=== PATIENT | male | born 1965 | race African-American/Black ===

== ENCOUNTER 2018-01-29 20:07 | Inpatient (IN) | payer MEDICARE ==
[~2018-01-29] VITALS: Ht 182.9 cm; Wt 82.9 kg
--- NOTE | ~2018-01-29 | EC ---
PATIENT:VALENTE HUFF DATE OF SERVICE: 01/29/18 SEX: M MEDICAL RECORD: [id number] DATE OF : [birth year] LOCATION:D.M2 D.210 AGE OF PATIENT: 52 ADMISSION DATE: 01/29/18 REFERRING PHYSICIAN: INTERPRETING PHYSICIAN: MOISES STEVENS MD ECHOCARDIOGRAM REPORT ECHO CHARGES 4 ECHO COMPLETE Date: 01/30 CLINICAL DIAGNOSIS: SEPSIS/ASSESS FOR VEG/ PT HAS DIALYSIS CATHTER ECHOCARDIOGRAPHIC MEASUREMENTS (adult normal given) AC root (d.<3.7cm) 3.5 cm LV Septum d (<1.2 cm> 1.5 cm Valve Excursion 2.5 cm LV Septum (systole) 1.6 cm Left Atria (s.<4.0cm> 3.5 cm LVPW d(<1.2cm) 1.7 cm RV (d.<2.3cm) 4.0 cm LVPW (sytole) 2.0 cm LV diastole(<5.6CM) 5.2 cm MV E-F(>70mm/sec) cm LV systole 3.1 cm LVOT Diameter 2.2 cm MV exc.(>10mm) 2.8 cm Est.ejection fraction (50-75%) % DOPPLER: LVIT cm/sec A 86.0 cm/sec E 101 cm/sec LA cm/sec RVSP 18 mmHg LVOT 118 cm/sec AOP1/2T m/s Asc. Ao 136 cm/sec RVOT 89 cm/sec RA cm/sec PA 109 cm/sec AV Gradient Peak mmHg AV Mean 7.42 mmHg AV Area 3.89 cm MV Gradient Peak 3.3 mmHg MV Mean 5.69 mmHg MV Area 2.69 cm COMMENTS: Surgery Teacher: Jacek VALENZUELA Sewage Plant Attendant: 1 Dr. Stevens TAPE# PACS Pericardial Effusion N DATE OF SERVICE: 01/30/2018 PROCEDURE: Echocardiogram. FINDINGS: 1. Left ventricular chamber size is within normal limits. Left ventricular systolic function is normal. Overall ejection fraction estimated at 60%. 2. Left atrium is within normal limits at 3.5 cm. Right atrium and right ventricular sizes are mildly dilated. 3. Valvular structures have normal structure and motion. ECHOCARDIOGRAM REPORT [id number] VALENTE HUFF 4. Doppler interrogation reveals mild mitral regurgitation, mild tricuspid regurgitation, no other valvular insufficiency or stenosis. 5. No evidence of pericardial effusion or left ventricular thrombus. 6. No evidence of vegetative endocarditis. TRANSINT:[id number] Voice Confirmation ID: [id number] DOCUMENT ID: [id number] MOISES STEVENS MD at 1403 CC: [id number] DICTATION DATE: 01/31/18 1214 CCNA: 01/31/18 1232 DIS IN 02/05/18 [place] [id number] [place] [id number]
--- NOTE | ~2018-01-29 | OP ---
PATIENT NAME: VALENTE HUFF MEDICAL RECORD: [id number] :69 LOCATION:D.M2 D.2104 ADMISSION DATE:01/29/18 SURGEON: MORRO TOWNSEND MD DATE OF OPERATION: 02/03/2018 PREOPERATIVE DIAGNOSES: 1. Osteomyelitis of the right great toe. 2. End-stage renal disease. 3. Peripheral artery disease. POSTOPERATIVE DIAGNOSES: 1. Osteomyelitis of the right great toe. 2. End-stage renal disease. 3. Peripheral artery disease. PROCEDURE: Excisional sharp debridement of the right great toe. SURGEON: Morro Townsend MD REPORT OF OPERATION: The patient's right great toe tip had a large amount of necrotic tissue present. Using sharp dissection, I was able to dissect through the tip of this tissue, which was necrotic. As I continued down, I encountered the tip of the patient's bone which had some osteomyelitis-type changes. The surrounding area had minimal amount of purulence. A sharp dissection was continued until we encountered what appeared to be bleeding tissue. The patient did not require anesthesia for this procedure. Eventually, we took off a section of tissue that was about 2 cm in greatest diameter and extended down through the subcutaneous tissues to the bone. The wound was then irrigated out with peroxide and covered with gauze. COMPLICATIONS: None. CONDITION: Stable. ANESTHESIA: None. BLOOD LOSS: Minimal. Procedure done at the bedside. TRANSINT:[id number] Voice Confirmation ID: [id number] DOCUMENT ID: [id number] MORRO TOWNSEND MD at 1228 CC: [id number] DICTATION DATE: 02/13/18 1322 SECURED ENTRANCE MONITOR: 02/13/18 1348 DIS IN 02/05/18 [facility] [address] [place] [address]
[2018-01-30 01:31] VITALS: BP 122/61
[2018-01-30] MEDS ORDERED: ULTRAM50 MG PO (03:07)
[2018-01-30] MEDS ORDERED: PHOSLO667 MG PO (03:07)
[2018-01-30] MEDS ORDERED: XALATAN 0.0052.5 ML EACH EYE (03:08)
[2018-01-30] MEDS ORDERED: NORCO 7.5/325 T1 TA1 PO (03:08)
[2018-01-30] MEDS ORDERED: NEXIUM40 MG PO (03:09)
[2018-01-30] MEDS ORDERED: GABAPENTIN100 MG PO (03:09)
[2018-01-30] MEDS ORDERED: VELTASSA8.4 GM PO (03:10)
[2018-01-30] MEDS ORDERED: HUMULIN N100 U/ML SC (03:10)
[2018-01-30] MEDS ORDERED: CLEOCIN HCL150 MG PO (03:11)
[2018-01-30] MEDS ORDERED: CYCLOBENZAPRINE10 MG PO (03:12)
[2018-01-30 05:35] LABS: BASOPHILS 0.2 % (0-2); HEMATOCRIT 35.2 % (42.0-54.0); HEMOGLOBIN 11.2 g/dL (13.5-17.5); IMMATURE GRANULOCYTES 0.4 % (0-5); LYMPHOCYTES 10.8 % (15-50); MCH 30.8 pg (26.0-34.0); MCHC 31.8 g/dL (31.0-37.0); MCV 96.7 fL (80.0-100.0); MEAN PLATELET VOLUME 8.8 fL (7.4-10.4); MONOCYTES 7.7 % (2-11); NEUTROPHILS 76.9 % (40-80); PLATELET COUNT 196 10x3/uL (130-400); RBC 3.64 10x6/uL (4.20-6.10); RDW 17.9 % (11.5-14.5); WBC 16.7 10x3/uL (4.8-10.8)
[2018-01-30 05:52] LABS: ALBUMIN 2.5 g/dL (3.4-5.0); ANION GAP 17.2 mmol/L (8-16); BILIRUBIN - TOTAL 0.3 mg/dL (0.2-1.3); CALCIUM 8.9 mg/dL (8.5-10.1); CREATININE - SERUM 11.6 mg/dL (0.6-1.3); POTASSIUM - SERUM 4.2 mmol/L (3.5-5.1)
[2018-01-30 06:21] VITALS: BP 99/45
[2018-01-30 07:33] LABS: GENTAMICIN - RANDOM 1.4 ug/mL (0.5-2.0); VANCOMYCIN - RANDOM 8.1 ug/mL (10.0-20.0)
[2018-01-30 08:50] VITALS: BP 106/49
[2018-01-30 10:41] VITALS: BMI 25.6
[2018-01-30 12:03] VITALS: BP 130/74
[2018-01-30 15:28] VITALS: BP 149/80
[2018-01-30 20:38] VITALS: BP 125/68
[2018-01-31 00:05] VITALS: BP 120/60
[2018-01-31 04:39] VITALS: BP 123/63
[2018-01-31 05:25] LABS: ANION GAP 22.6 mmol/L (8-16); CALCIUM 8.8 mg/dL (8.5-10.1); CARBON DIOXIDE 21.2 mmol/L (21.0-32.0); CREATININE - SERUM 14.1 mg/dL (0.6-1.3); GENTAMICIN - RANDOM 1.3 ug/mL (0.5-2.0); PHOSPHOROUS 5.8 mg/dL (2.5-4.9); POTASSIUM - SERUM 3.8 mmol/L (3.5-5.1); VANCOMYCIN - RANDOM 7.9 ug/mL (10.0-20.0)
[2018-01-31 05:36] LABS: BASOPHILS 0.1 % (0-2); EOSINOPHILS 10.6 % (0-7); HEMATOCRIT 35.4 % (42.0-54.0); HEMOGLOBIN 11.3 g/dL (13.5-17.5); IMMATURE GRANULOCYTES 0.2 % (0-5); LYMPHOCYTES 9.4 % (15-50); MCH 30.5 pg (26.0-34.0); MCHC 31.9 g/dL (31.0-37.0); MCV 95.7 fL (80.0-100.0); MEAN PLATELET VOLUME 9.1 fL (7.4-10.4); MONOCYTES 9.9 % (2-11); NEUTROPHILS 69.8 % (40-80); RDW 17.4 % (11.5-14.5); WBC 15.3 10x3/uL (4.8-10.8)
[2018-01-31 05:47] LABS: PLATELET COUNT 241 10x3/uL (130-400)
[2018-01-31 08:02] VITALS: BP 108/61
[2018-01-31 15:19] VITALS: BP 109/74
[2018-01-31 20:33] VITALS: BP 112/62
[2018-02-01 01:35] VITALS: BP 86/64
[2018-02-01 04:59] LABS: BASOPHILS 0.2 % (0-2); EOSINOPHILS 12.5 % (0-7); HEMATOCRIT 35.1 % (42.0-54.0); HEMOGLOBIN 11.3 g/dL (13.5-17.5); IMMATURE GRANULOCYTES 0.7 % (0-5); LYMPHOCYTES 9.4 % (15-50); MCH 30.5 pg (26.0-34.0); MCHC 32.2 g/dL (31.0-37.0); MCV 94.9 fL (80.0-100.0); MEAN PLATELET VOLUME 8.8 fL (7.4-10.4); MONOCYTES 12.3 % (2-11); NEUTROPHILS 64.9 % (40-80); PLATELET COUNT 214 10x3/uL (130-400); RDW 17.3 % (11.5-14.5)
[2018-02-01 05:02] LABS: WBC 11.2 10x3/uL (4.8-10.8)
[2018-02-01 05:38] LABS: ANION GAP 16.5 mmol/L (8-16); CARBON DIOXIDE 26.2 mmol/L (21.0-32.0); CREATININE - SERUM 11.9 mg/dL (0.6-1.3); PHOSPHOROUS 5.2 mg/dL (2.5-4.9); POTASSIUM - SERUM 3.7 mmol/L (3.5-5.1)
[2018-02-01 05:50] VITALS: BP 97/50
[2018-02-01 08:25] VITALS: BP 94/50
[2018-02-01 10:28] VITALS: Ht 182.9 cm; Wt 82.9 kg
[2018-02-01 15:53] VITALS: BP 113/67
[2018-02-01 20:34] VITALS: BP 142/85
[2018-02-02 01:31] VITALS: BP 117/78
[2018-02-02 05:43] VITALS: BP 102/54
[2018-02-02 05:50] LABS: BASOPHILS 0.2 % (0-2); EOSINOPHILS 16.2 % (0-7); HEMATOCRIT 33.2 % (42.0-54.0); HEMOGLOBIN 10.7 g/dL (13.5-17.5); IMMATURE GRANULOCYTES 1.2 % (0-5); LYMPHOCYTES 14.1 % (15-50); MCH 30.4 pg (26.0-34.0); MCHC 32.2 g/dL (31.0-37.0); MCV 94.3 fL (80.0-100.0); MEAN PLATELET VOLUME 9.1 fL (7.4-10.4); MONOCYTES 12.6 % (2-11); NEUTROPHILS 55.7 % (40-80); PLATELET COUNT 217 10x3/uL (130-400); RBC 3.52 10x6/uL (4.20-6.10)
[2018-02-02 05:53] LABS: WBC 8.2 10x3/uL (4.8-10.8)
[2018-02-02 06:03] LABS: ANION GAP 18.9 mmol/L (8-16); CALCIUM 8.9 mg/dL (8.5-10.1); CARBON DIOXIDE 25.7 mmol/L (21.0-32.0); CREATININE - SERUM 13.4 mg/dL (0.6-1.3); PHOSPHOROUS 5.5 mg/dL (2.5-4.9); POTASSIUM - SERUM 3.6 mmol/L (3.5-5.1); VANCOMYCIN - RANDOM 16.4 ug/mL (10.0-20.0)
[2018-02-02 10:02] VITALS: BP 122/64
[2018-02-02 13:18] VITALS: BP 135/81
[2018-02-02 16:17] VITALS: BP 152/90
[2018-02-02 22:00] VITALS: BP 152/79
[2018-02-03 02:06] VITALS: BP 122/66
[2018-02-03 06:01] VITALS: BP 111/67
[2018-02-03 06:51] LABS: BASOPHILS 0.3 % (0-2); EOSINOPHILS 12.2 % (0-7); HEMATOCRIT 32.3 % (42.0-54.0); HEMOGLOBIN 10.4 g/dL (13.5-17.5); IMMATURE GRANULOCYTES 1.4 % (0-5); LYMPHOCYTES 12.6 % (15-50); MCH 30.2 pg (26.0-34.0); MCHC 32.2 g/dL (31.0-37.0); MCV 93.9 fL (80.0-100.0); MEAN PLATELET VOLUME 9.1 fL (7.4-10.4); MONOCYTES 11.9 % (2-11); NEUTROPHILS 61.6 % (40-80); PLATELET COUNT 239 10x3/uL (130-400); RBC 3.44 10x6/uL (4.20-6.10); RDW 16.9 % (11.5-14.5); WBC 9.4 10x3/uL (4.8-10.8)
[2018-02-03 07:14] LABS: ANION GAP 18.6 mmol/L (8-16); CALCIUM 9.2 mg/dL (8.5-10.1); CARBON DIOXIDE 24.1 mmol/L (21.0-32.0); CREATININE - SERUM 15.6 mg/dL (0.6-1.3); PHOSPHOROUS 5.3 mg/dL (2.5-4.9); POTASSIUM - SERUM 3.7 mmol/L (3.5-5.1); VANCOMYCIN - RANDOM 30.5 ug/mL (10.0-20.0)
[2018-02-03 08:53] VITALS: BP 109/53
[2018-02-03 20:00] VITALS: BP 141/85
[2018-02-04] VITALS: BP 150/79
[2018-02-04 04:00] VITALS: BP 142/70
[2018-02-04 05:26] LABS: BASOPHILS 0.3 % (0-2); EOSINOPHILS 9.6 % (0-7); HEMATOCRIT 34.7 % (42.0-54.0); HEMOGLOBIN 11.3 g/dL (13.5-17.5); IMMATURE GRANULOCYTES 1.5 % (0-5); LYMPHOCYTES 11.6 % (15-50); MCH 30.6 pg (26.0-34.0); MCHC 32.6 g/dL (31.0-37.0); MEAN PLATELET VOLUME 8.6 fL (7.4-10.4); MONOCYTES 9.6 % (2-11); NEUTROPHILS 67.4 % (40-80); PLATELET COUNT 229 10x3/uL (130-400); RBC 3.69 10x6/uL (4.20-6.10); RDW 16.8 % (11.5-14.5); WBC 9.9 10x3/uL (4.8-10.8)
[2018-02-04 05:57] LABS: ANION GAP 17.2 mmol/L (8-16); CALCIUM 9.1 mg/dL (8.5-10.1); CARBON DIOXIDE 24.3 mmol/L (21.0-32.0); PHOSPHOROUS 4.9 mg/dL (2.5-4.9); POTASSIUM - SERUM 3.5 mmol/L (3.5-5.1); VANCOMYCIN - RANDOM 24.6 ug/mL (10.0-20.0)
[2018-02-04 07:59] VITALS: BP 115/59
[2018-02-04 11:48] VITALS: BP 146/88
[2018-02-04 15:46] VITALS: BP 157/83
[2018-02-04 20:28] VITALS: BP 149/87
[2018-02-05 01:30] VITALS: BP 135/73
[2018-02-05 04:00] VITALS: BP 103/55
[2018-02-05 07:44] VITALS: BP 133/63
[2018-02-05] MEDS ORDERED: CYCLOBENZAPRINE10 MG PO (11:25)
[2018-02-05] MEDS ORDERED: ZOCOR40 MG PO (11:25)
[2018-02-05 11:43] VITALS: BP 142/75
[2018-02-05] MEDS ORDERED: LEVAQUIN500 MG PO (14:01)
[2018-02-05] MEDS ORDERED: FLAGYL500 MG PO (14:04)
[2018-02-06 10:21] LABS: HEPATITIS C ANTIBODY 0.2 (0.0-0.9)
== END 2018-02-05 18:18 | disposition home health service (06) | DRG 623 ==
LOC: D.M2 20:07
PROVIDERS: Internal Medicine Nephrology
PROC: 0JBQ0ZZ Excision of Right Foot Subcutaneous Tissue and Fascia, Open Approach (ICD-10-PCS; principal; 2018-02-03)
DX: E11.69 Type 2 diabetes mellitus with other specified complication (principal); M86.171 Other acute osteomyelitis, right ankle and foot; N18.6 End stage renal disease; E11.22 Type 2 diabetes mellitus with diabetic chronic kidney disease; Z99.2 Dependence on renal dialysis; F32.9 Major depressive disorder, single episode, unspecified; D63.1 Anemia in chronic kidney disease; S91.302A Unspecified open wound, left foot, initial encounter; S91.301A Unspecified open wound, right foot, initial encounter; X58.XXXA Exposure to other specified factors, initial encounter

== ENCOUNTER → 2018-04-08 12:49 | Outpatient (CLI) | payer MEDICARE ==
[2018-02-01 10:28] VITALS: BMI 25.6
[~2018-04-08 12:49] MED LIST: CLEOCIN HCL150 MG PO; CYCLOBENZAPRINE10 MG PO; FLAGYL500 MG PO; GABAPENTIN100 MG PO; HUMULIN N100 U/ML SC; LEVAQUIN500 MG PO; NEXIUM40 MG PO; NORCO 7.5/325 T1 TA1 PO; PHOSLO667 MG PO; ULTRAM50 MG PO; VELTASSA8.4 GM PO; XALATAN 0.0052.5 ML EACH EYE; ZOCOR40 MG PO
== END | disposition home or self-care (01) ==
LOC: D.CT 04-03 09:00
DX: N18.6 End stage renal disease (principal)

== ENCOUNTER 2018-07-08 08:00 | Outpatient (CLI) | payer MEDICARE ==
[2018-02-01 10:28] VITALS: BMI 25.6
== END 2018-07-08 08:01 | disposition home or self-care (01) ==
LOC: D.OPS 08:00 → EDSTATUS 11:00 → D.OPS 11:30
DX: N18.6 End stage renal disease (principal); Z99.2 Dependence on renal dialysis; Z01.812 Encounter for preprocedural laboratory examination; Z01.811 Encounter for preprocedural respiratory examination; Z01.810 Encounter for preprocedural cardiovascular examination

== ENCOUNTER 2018-07-22 07:07 | Inpatient (IN) | payer MEDICARE ==
[~2018-07-22] VITALS: Ht 175.3 cm; Wt 88.0 kg
--- NOTE | ~2018-07-22 | MORECARE ---
CASE MANAGEMENT DISCHARGE SUMMARY PATIENT: VALENTE HUFF UNIT: [id number] ADM DATE: 07/22/18 AGE: 52 : [birth year] SEX: M ROOM/BED: D.2106 AUTHOR: SANTOS,DOC PHYSICIAN: REFERRING PHYSICIAN: JOHANN RANGEL MD DATE OF SERVICE: 07/25/18 Discharge Plan Patient Name: VALENTE HUFF Facility: [facility]:[place] : 1965 Planned Disposition: Home with Home Health Anticipated Discharge Date: 07/23/18 Discharge Date: 07/23/2018 Expected LOS: 1 Initial Reviewer: [email or web address] Initial Review Date: 07/23/2018 Generated: 07/25/18 9:05 am Comments DCP- Discharge Planning Updated by [email or web address]: Edgardo Carr on 07/23/18 1:[address] Patient Name: VALENTE HUFF Admission Status: Elective Accout number: [id number] Admission Date: 07-22-2018 : 1965 Admission Diagnosis: Attending: JOHANN RANGEL Current LOS: 1 Anticipated DC Date: 07-24-2018 Planned Disposition: Home with Home Health Primary Insurance: [facility] MEDICARE SOLUTIONS PLANNED EXTERNAL PROVIDER: [facility] Discharge Planning Comments: CM RECEIVED [facility] ORDER, MET WITH PT IN ROOM TO DISCUSS DISCHARGE PLANNING AND NEEDS. PT REPORTS LIVING AT HOME INDEPENDENTLY WITH FAMILY. PT HAS [facility]ENTER WITH NO MEDICAL EQUIPMENT PROVIDER [facility]. PT HAS [facility] OUT OF [place] OFFICE THAT COME OUT AND HELP WITH WOUND CARE. PT GOES TO DIALYSIS AT [facility] IN [place], [facility], 1030AM, PT TAKES [employer] MEDICAID TRANSPORTATION. CM DISCUSSED AVAILABILITY OF HOME HEALTH, REHAB SERVICES AND MEDICAL EQUIPMENT. PT WOULD LIKE [employer] TO RESUME, CHOICE SIGNED. PT EPORTS HER HIS FRIEND, MARIETTA WILL PICK HIM UP FOR DISCHARGE HOME. CM CALLED [facility] IN [place], , SPOKE TO FUNMILAYO WHO INFORMED CM THAT THEY ALREADY SEE PT FOR WOUND CARE AND ARE FAMILIAR WITH THE WOUND AND ORDERS FOR CARE. PT ALSO GOES TO THE WOUND CARE CLINIC AND THEY ARE WORKING AROUND PT'S DIALYSIS SCHEDULE. CM FAXED REFERRAL TO [facility] AT [phone]. FOR DISCHARGE, NOTIFY [facility] AT [phone], FAX DISCHARGE INFORMATION TO [facility] AT [phone]. Shell Molder: Edgardo Carr DCPIA - Discharge Planning Initial Assessment Updated by [email or web address]: Edgardo Carr on 07/23/18 2:28 pm * Is the patient Alert and Oriented? Yes * How many steps to enter\exit or inside your home? * PCP DR. HERRERA BARAKAT IN [place] * Pharmacy [facility] IN [place] * Preadmission Environment Home with Family * ADLs Independent * Equipment Glucometer * Other Equipment NO MEDICAL EQUIPMENT PROVIDER PREFERENCE * List name and contact numbers for known caregivers / representatives who currently or will assist patient after discharge: MARIETTA PUGH, FRIEND, * Verbal permission to speak to the caregivers and representatives has been obtained from the patient. N/A * Community resources currently utilized Home Health Other * Please name any agencies selected above. [facility] [phone] OUTPATIENT DIALYSIS, [place], MWF, 1030AM, MEDICAID TRANSPORTATION * Additional services required to return to the preadmission environment? No * Can the patient safely return to the preadmission environment? Yes * Has this patient been hospitalized within the prior 30 days at any hospital? No Last DP export: 07/23/18 1:32 Patient Name: VALENTE HUFF Page [phone] at 0805 All edits/amendments must be made on the electronic document DICTATION DATE: 07/25/18 08 CREDIT CONTROL OFFICER: FRANNIE 07/25/18803 RPT#: [id number] DC DATE:07/23/18 STATUS: DIS IN [facility] [address] [place] [address] END OF REPORT
--- NOTE | ~2018-07-22 | MORECARE ---
CASE MANAGEMENT DISCHARGE SUMMARY PATIENT: VALENTE HUFF UNIT: [id number] ADM DATE: 07/22/18 AGE: 52 : 69 SEX: M ROOM/BED: D.2105 AUTHOR: LONI GRAHAM PHYSICIAN: REFERRING PHYSICIAN: JOHANN RANGEL MD DATE OF SERVICE: 07/23/18 Discharge Plan Patient Name: VALENTE HUFF Facility: [facility]:[place] : 1965 Planned Disposition: Home with Home Health Anticipated Discharge Date: 07/24/18 Discharge Date: Expected LOS: 2 Initial Reviewer: [email or web address] Initial Review Date: 07/23/2018 Generated: 07/23/18 3:23 pm DCPIA - Discharge Planning Initial Assessment Updated by [email or web address]: Edgardo Carr on 07/23/18 2:21 pm * Is the patient Alert and Oriented? Yes * How many steps to enter\exit or inside your home? * PCP DR. HERRERA BARAKAT IN [place] * Pharmacy [facility] IN [place] * Preadmission Environment Home with Family * ADLs Independent * Equipment Glucometer * Other Equipment NO MEDICAL EQUIPMENT PROVIDER PREFERENCE * List name and contact numbers for known caregivers / representatives who currently or will assist patient after discharge: MARIETTA PUGH, FRIEND, * Verbal permission to speak to the caregivers and representatives has been obtained from the patient. N/A * Community resources currently utilized Home Health * Please name any agencies selected above. [facility] OFFICE [phone] * Additional services required to return to the preadmission environment? No * Can the patient safely return to the preadmission environment? Yes * Has this patient been hospitalized within the prior 30 days at any hospital? No Patient Name: VALENTE HUFF Page [phone] at 1424 All edits/amendments must be made on the electronic document DICTATION DATE: 07/23/181422 TWILL CUTTER: FRANNIE 07/23/181422 RPT#: [id number] DC DATE: STATUS: ADM IN [facility] [address] [place] [address] END OF REPORT
--- NOTE | ~2018-07-22 | MORECARE ---
CASE MANAGEMENT DISCHARGE SUMMARY PATIENT: VALENTE HUFF UNIT: [id number] ADM DATE: 07/22/18 AGE: 52 : 69 SEX: M ROOM/BED: D.2107 AUTHOR: LONI GRAHAM PHYSICIAN: REFERRING PHYSICIAN: JOHANN RANGEL MD DATE OF SERVICE: 07/25/18 Discharge Plan Patient Name: VALENTE HUFF Facility: [facility]:[place] : 1965 Planned Disposition: Home with Home Health Anticipated Discharge Date: 07/23/18 Discharge Date: 07/23/2018 Expected LOS: 1 Initial Reviewer: [email or web address] Initial Review Date: 07/23/2018 Generated: 07/25/18 9:11 am Comments DCP- Discharge Planning Updated by [email or web address]: Edgardo Carr on 07/25/18 7:[address] Patient Name: VALENTE HUFF Encounter No: [id number] : 1965 Primary Insurance: [facility] MEDICARE SOLUTIONS Anticipated DC Date: 07-23-2018 Planned Disposition: Home with Home Health External Planned Provider: [facility] [place] [facility] DCP follow-up note: CM REVIEWED CHART, PT DISCHARGED HOME. CM CALLED [facility] [place] [facility] AT [phone], SPOKE TO SHEN WHO REPORTS THEY WILL SEE PT AND HAD TO DO AN ENTIRE NEW ADMIT DUE TO TIME FRAME THAT HOSPITAL ADMISSION FELL. CM FAXED DISCHARGE INFORMATION TO [employer] AT [phone]. Interventional Radiology Tech: Edgardo Carr DCP- Discharge Planning Updated by [email or web address]: Edgardo Carr on 07/23/18 1:[address] Patient Name: VALENTE HUFF Admission Status: Elective Accout number: [id number] Admission Date: 07-22-2018 : 1965 Admission Diagnosis: Attending: JOHANN RANGEL Current LOS: 1 Anticipated DC Date: 07-24-2018 Planned Disposition: Home with Home Health Primary Insurance: [employer] MEDICARE SOLUTIONS PLANNED EXTERNAL PROVIDER: [facility] [place] [facility] Discharge Planning Comments: CM RECEIVED [facility] ORDER, MET WITH PT IN ROOM TO DISCUSS DISCHARGE PLANNING AND NEEDS. PT REPORTS LIVING AT HOME INDEPENDENTLY WITH FAMILY. PT HAS GLUCOMENTER WITH NO MEDICAL EQUIPMENT PROVIDER PREFERNECE. PT HAS [facility] OUT OF [place] OFFICE THAT COME OUT AND HELP WITH WOUND CARE. PT GOES TO DIALYSIS AT [facility] IN [place], MWF, 1030AM, PT TAKES [employer] MEDICAID TRANSPORTATION. CM DISCUSSED AVAILABILITY OF HOME HEALTH, REHAB SERVICES AND MEDICAL EQUIPMENT. PT WOULD LIKE [employer] TO RESUME, CHOICE SIGNED. PT EPORTS HER HIS FRIEND, MARIETTA WILL PICK HIM UP FOR DISCHARGE HOME. CM CALLED [facility] IN [place], , SPOKE TO FUNMILAYO WHO INFORMED CM THAT THEY ALREADY SEE PT FOR WOUND CARE AND ARE FAMILIAR WITH THE WOUND AND ORDERS FOR CARE. PT ALSO GOES TO THE WOUND CARE CLINIC AND THEY ARE WORKING AROUND PT'S DIALYSIS SCHEDULE. CM FAXED REFERRAL TO [facility] AT [phone]. FOR DISCHARGE, NOTIFY [facility] OFFICE AT [phone], FAX DISCHARGE INFORMATION TO [employer] AT [phone]. Interventional Radiology Tech: Edgardo Carr DCPIA - Discharge Planning Initial Assessment Updated by [id number]: Edgardo Carr on 07/23/18 2:28 pm * Is the patient Alert and Oriented? Yes * How many steps to enter\exit or inside your home? * PCP DR. HERRERA BARAKAT IN [place] * Pharmacy [facility] IN [place] * Preadmission Environment Home with Family * ADLs Independent * Equipment Glucometer * Other Equipment NO MEDICAL EQUIPMENT PROVIDER PREFERENCE * List name and contact numbers for known caregivers / representatives who currently or will assist patient after discharge: MARIETTA PUGH, FRIEND, * Verbal permission to speak to the caregivers and representatives has been obtained from the patient. N/A * Community resources currently utilized Home Health Other * Please name any agencies selected above. [employer] [facility] OFFICE [phone] OUTPATIENT DIALYSIS, [facility], MWF, 1030AM, MEDICAID TRANSPORTATION * Additional services required to return to the preadmission environment? No * Can the patient safely return to the preadmission environment? Yes * Has this patient been hospitalized within the prior 30 days at any hospital? No Last DP export: 07/25/18 7:05 Patient Name: VALENTE HUFF Page [phone] at 0811 All edits/amendments must be made on the electronic document DICTATION DATE: 07/25/18810 AUTO CLAIMS ADJUSTER: FRANNIE 07/25/18810 RPT#: [id number] DC DATE:07/23/18 STATUS: DIS IN [facility] [address] [facility] [place] [address] END OF REPORT
--- NOTE | ~2018-07-22 | MORECARE ---
CASE MANAGEMENT DISCHARGE SUMMARY PATIENT: VALENTE HUFF UNIT: [id number] ADM DATE: 07/22/18 AGE: 52 : 69 SEX: M ROOM/BED: D.8664 AUTHOR: SANTOS,DOC PHYSICIAN: REFERRING PHYSICIAN: JOHANN RANGEL MD DATE OF SERVICE: 07/23/18 Discharge Plan Patient Name: VALENTE HUFF Facility: [facility]:[place] : 1965 Planned Disposition: Home with Home Health Anticipated Discharge Date: 07/24/18 Discharge Date: Expected LOS: 2 Initial Reviewer: [email or web address] Initial Review Date: 07/23/2018 Generated: 07/23/18 3:32 pm Comments DCP- Discharge Planning Updated by [email or web address]: Edgardo Carr on 07/23/18 1:[address] Patient Name: VALENTE HUFF Admission Status: Elective Accout number: [id number] Admission Date: 07-22-2018 : 1965 Admission Diagnosis: Attending: JOHANN RANGEL Current LOS: 1 Anticipated DC Date: 07-24-2018 Planned Disposition: Home with Home Health Primary Insurance: [facility] MEDICARE SOLUTIONS PLANNED EXTERNAL PROVIDER: [employer] [facility] OFFICE Discharge Planning Comments: CM RECEIVED [facility] ORDER, MET WITH PT IN ROOM TO DISCUSS DISCHARGE PLANNING AND NEEDS. PT REPORTS LIVING AT HOME INDEPENDENTLY WITH FAMILY. PT HAS GLUCOMENTER WITH NO MEDICAL EQUIPMENT PROVIDER PREFERNECE. PT HAS [facility] OUT OF [place] OFFICE THAT COME OUT AND HELP WITH WOUND CARE. PT GOES TO DIALYSIS AT [facility] IN [place], [facility], 1030AM, PT TAKES [employer] MEDICAID TRANSPORTATION. CM DISCUSSED AVAILABILITY OF HOME HEALTH, REHAB SERVICES AND MEDICAL EQUIPMENT. PT WOULD LIKE [employer] TO RESUME, CHOICE SIGNED. PT EPORTS HER HIS FRIEND, MARIETTA WILL PICK HIM UP FOR DISCHARGE HOME. CM CALLED [employer] [facility] IN [place], , SPOKE TO FUNMILAYO WHO INFORMED CM THAT THEY ALREADY SEE PT FOR WOUND CARE AND ARE FAMILIAR WITH THE WOUND AND ORDERS FOR CARE. PT ALSO GOES TO THE WOUND CARE CLINIC AND THEY ARE WORKING AROUND PT'S DIALYSIS SCHEDULE. CM FAXED REFERRAL TO [facility] AT [phone]. FOR DISCHARGE, NOTIFY [facility] OFFICE AT [phone], FAX DISCHARGE INFORMATION TO [employer] AT [phone]. Foreign Trade Teacher: Edgardo Carr DCPIA - Discharge Planning Initial Assessment Updated by [email or web address]: Edgardo Carr on 07/23/18 2:28 pm * Is the patient Alert and Oriented? Yes * How many steps to enter\exit or inside your home? * PCP DR. HERRERA BARAKAT IN [place] * Pharmacy [facility] IN [place] * Preadmission Environment Home with Family * ADLs Independent * Equipment Glucometer * Other Equipment NO MEDICAL EQUIPMENT PROVIDER PREFERENCE * List name and contact numbers for known caregivers / representatives who currently or will assist patient after discharge: MARIETTA PUGH, FRIEND, * Verbal permission to speak to the caregivers and representatives has been obtained from the patient. N/A * Community resources currently utilized Home Health Other * Please name any agencies selected above. [employer] [facility] OFFICE [phone] OUTPATIENT DIALYSIS, [place], MWF, 1030AM, MEDICAID TRANSPORTATION * Additional services required to return to the preadmission environment? No * Can the patient safely return to the preadmission environment? Yes * Has this patient been hospitalized within the prior 30 days at any hospital? No External Providers External Provider: [facility] Next Contact Date: 07/24/2018 Service Request Date: Service Type: Resolution: Reviewer: Comments: Last DP export: 07/23/18 1:23 Patient Name: VALENTE HUFF Page 58038 at 1432 All edits/amendments must be made on the electronic document DICTATION DATE: 07/23/181431 STAMP REDEMPTION CLERK: FRANNIE 07/23/18 143 RPT#: [id number] DC DATE: STATUS: ADM IN [facility] [address] [place] [address] END OF REPORT
--- NOTE | ~2018-07-22 | OP ---
PATIENT NAME: VALENTE HUFF MEDICAL RECORD: [id number] :[birth year] LOCATION:D.M2 D.2105 ADMISSION DATE:07/22/18 SURGEON: PEPPER MEJIA MD DATE OF OPERATION: 07/22/2018 REFERRED BY: Clay Carr MD PREOPERATIVE DIAGNOSES: End-stage renal disease without long-term dialysis access and malfunctioning tunneled dialysis catheter and recent onset of "cellulitis" of the abdominal wall site of insulin injection. POSTOPERATIVE DIAGNOSES: Oddly placed or malpositioned left internal jugular Trialysis non-tunneled dialysis catheter with tip in the left brachiocephalic vein and skin and soft tissue infection with abscess of the anterior abdominal wall. OPERATION PERFORMED: Removal of Trialysis catheter from the left internal jugular vein with superior vena cavogram. Then, ultrasound-guided insertion of a 19-cm HemoSplit dialysis catheter via the right internal jugular vein done under fluoroscopic control and then lastly ultrasound examination of anterior abdominal wall, ultrasound-guided needle aspiration and then open drainage of abscess with placement of a [place] drain. SURGEON: Pepper Mejia MD ANESTHESIA: General with LMA per TAPPER HELPER. PREOPERATIVE NOTE: Mr. Huff is a 52-year-old diabetic who was to have had surgery today to implant an AV graft or create an AV fistula in his right upper extremity. He was thought to have a tunneled dialysis catheter on the left for unknown reasons, which was not functioning well and I have been asked to change it out and also yesterday I was notified that he had an area of cellulitis on the abdominal wall, at the site of insulin injections and had been treated with gentamicin and Keflex. Today in the operating room, I find that he does not have a tunneled catheter, but has a Trialysis catheter in the left internal jugular position, not inserted very far, but on fluoroscopy the tip of the catheters threatening the superior vena cava from the proximal left brachiocephalic vein and ultrasound examination of the abdominal wall lesion demonstrates a fairly significant area of a soft tissue infection and abscess of about 5 x 5 cm and a 2-3.5 cm in thickness without evidence this point of underlying intra-abdominal infection. DESCRIPTION OF PROCEDURE: Under general anesthesia, the patient was prepped and draped in sterile manner. Superior venacavogram was performed through the left Trialysis catheter before it was removed. Hemostasis was obtained with direct pressure. The superior venacavogram revealed that there was no obstruction or apparent stenosis of the brachiocephalic or superior vena cava with free flow of contrast into the right atrium. Ultrasound demonstrated the right internal jugular vein was patent. An incision was made there and through that incision a micropuncture needle and guidewire were inserted and fluoroscopy confirmed proper positioning. Subsequently, a larger catheter and wire were placed and then dilators, and lastly the HemoSplit peel-away introducer. A 19-cm HemoSplit catheter was placed through an infraclavicular stab incision, pulled through a subcutaneous tunnel and inserted OPERATIVE REPORT [id number] VALENTE HUFF through the peel-away sheath. There was difficulty in placing the catheter, which necessitated repeating a superior vena cavogram to confirm appropriate positioning. At the completion of the procedure, both lumens did draw blood easily and were easily flushed with saline and were shown to be in proper position in the right atrium. The catheter was hep-locked, clamped and capped. It was sutured to the skin with 2-0 Prolene and the cervical incision closed with interrupted inverted 3-0 Vicryl and Dermabond glue. It was dressed with Ultrafoam and Tegaderm with Cavilon skin prep. A standard CVL dressing was applied over the HemoSplit, which included a chlorhexidine disc. The site at the base of the left neck was dressed with Ultrafoam and Tegaderm with Cavilon. I then examined the area of swelling and induration and heat on the anterior abdominal wall just above and to the right of the umbilicus. This is about 4 x 5 or 5 x 5 cm area of induration. Ultrasound demonstrated what appeared to be pus in the irregular abscess cavity. Ultrasound-guided needle aspiration was performed which produced a creamy, non-foul smelling purulent mucoid fluid typical of the staphylococcal infection. This fluid was sent for cultures for aerobic and anaerobic organisms and for stat Gram stain examination. I made an incision then with an 11 blade and introduced a hemostat forceps and broke up areas of loculation and drained as much pus as possible by that manner and then placed a quarter-inch [place] drain and sutured it to the margin of the incision with Prolene suture. Sterile dry dressings were applied over this and the patient was awakened and the planned procedure to implant a graft in his arm was canceled for today and the patient will be admitted to the hospital for IV antibiotics and wound care. TRANSINT:[id number] Voice Confirmation ID: [id number] DOCUMENT ID: [id number] PEPPER MEJIA MD at 1657 CC: CLAY CARR [id number] DICTATION DATE: 07/22/18 1558 COMMERCIAL CREDIT SPECIALIST: 07/22/182111 DIS IN 07/23/18 [place] [id number] [place] [id number]
[2018-07-22 07:24] LABS: BASOPHILS 0.3 % (0-2); HEMATOCRIT 34.4 % (42.0-54.0); HEMOGLOBIN 10.9 g/dL (13.5-17.5); IMMATURE GRANULOCYTES 0.8 % (0-5); LYMPHOCYTES 12.2 % (15-50); MCH 28.7 pg (26.0-34.0); MCHC 31.7 g/dL (31.0-37.0); MCV 90.5 fL (80.0-100.0); MEAN PLATELET VOLUME 8.7 fL (7.4-10.4); MONOCYTES 10.2 % (2-11); NEUTROPHILS 72.5 % (40-80); PLATELET COUNT 249 10x3/uL (130-400); RDW 15.9 % (11.5-14.5)
[2018-07-22 07:32] LABS: CALCIUM 7.4 mg/dL (8.5-10.1); CARBON DIOXIDE 22.7 mmol/L (21.0-32.0); CREATININE - SERUM 18.3 mg/dL (0.6-1.3); POTASSIUM - SERUM 4.7 mmol/L (3.5-5.1)
[2018-07-22 07:33] LABS: APTT 33.6 SECONDS (22.8-39.4); INR 1.04 (0.85-1.17); PROTIME 13.3 SECONDS (11.6-15.0)
[2018-07-22 08:10] VITALS: BP 121/82; BMI 28.7
[2018-07-22 16:48] VITALS: BP 135/80
[2018-07-22 19:19] VITALS: BP 138/58; BMI 22.2
[2018-07-22 22:10] VITALS: BP 127/81
[2018-07-23] VITALS: BP 130/82
[2018-07-23 05:53] VITALS: BP 129/62
[2018-07-23 07:55] VITALS: BP 118/82
[2018-07-23 12:09] VITALS: Ht 175.3 cm; Wt 88.0 kg
[2018-07-23] MEDS ORDERED: Bactroban ointment NASAL (14:36)
== END 2018-07-23 18:58 | disposition home health service (06) | DRG 286 ==
LOC: D.OPS 07:07 → D.M2 16:33 → D.OPS 16:34 → D.M2 16:34
PROVIDERS: Surgery
PROC: 0W9F3ZZ Drainage of Abdominal Wall, Percutaneous Approach (ICD-10-PCS; 2018-07-22)
PROC: 02H633Z Insertion of Infusion Device into Right Atrium, Percutaneous Approach (ICD-10-PCS; 2018-07-22)
PROC: B2141ZZ Fluoroscopy of Right Heart using Low Osmolar Contrast (ICD-10-PCS; principal; 2018-07-22 11:00)
PROC: 05PY33Z Removal of Infusion Device from Upper Vein, Percutaneous Approach (ICD-10-PCS; 2018-07-22 11:00)
PROC: 0JH63XZ Insertion of Tunneled Vascular Access Device into Chest Subcutaneous Tissue and Fascia, Percutaneous Approach (ICD-10-PCS; 2018-07-22 11:00)
DX: T82.42XA Displacement of vascular dialysis catheter, initial encounter (principal); N18.6 End stage renal disease; L03.311 Cellulitis of abdominal wall; I12.0 Hypertensive chronic kidney disease with stage 5 chronic kidney disease or end stage renal disease; Y83.8 Other surgical procedures as the cause of abnormal reaction of the patient, or of later complication, without mention of misadventure at the time of the procedure; E11.22 Type 2 diabetes mellitus with diabetic chronic kidney disease; Z99.2 Dependence on renal dialysis; F32.9 Major depressive disorder, single episode, unspecified; Z87.891 Personal history of nicotine dependence

== ENCOUNTER → 2019-06-11 13:02 | Outpatient (CLI) | payer MEDICARE ==
[2018-07-23 12:09] VITALS: BMI 28.6
[~2019-06-11 13:02] MED LIST changes: +Bactroban ointment NASAL
== END | disposition home or self-care (01) ==
LOC: D.RT 13:02
PROVIDERS: ATTEND Surgery
DX: N18.6 End stage renal disease (principal)

== ENCOUNTER 2020-02-18 22:00 | Inpatient (IN) | payer MEDICARE ==
[~2020-02-18] VITALS: Ht 175.3 cm; Wt 86.1 kg
[2020-02-18 23:01] LABS: ANION GAP 21.4 mmol/L (8-16); CALCIUM 8.8 mg/dL (8.5-10.1); CARBON DIOXIDE 21.2 mmol/L (21.0-32.0); CREATININE - SERUM 13.1 mg/dL (0.6-1.3)
[2020-02-18 23:06] LABS: POTASSIUM - SERUM 6.6 mmol/L (3.5-5.1)
--- NOTE | 2020-02-18 23:13 | NUR ---
PT RECIEVED A GRAM OF VANCOMYCIN AT OTHER FACILITY. ORDER ENTERED FOR VANCOMYCIN WILL START AT NEXT DOSE.
--- NOTE | 2020-02-18 23:20 | NUR ---
NURSE ENTERED PT ROOM TO FIND PT SITTING UP ON EDGE OF BED. PT STATES "I DONT FEEL GOOD AND I THREW UP." NURSE NOTED SMALL AMOUNT OF YELLOW AND GREEN EMESIS ON THE FLOOR NEXT TO THE PT BED. EDP JOY NOTIFIED AND FURTHER ORDERS ENTERED BY HIM.
[2020-02-19 05:46] LABS: BASOPHILS 0.1 % (0-2); EOSINOPHILS 0 % (0-7); HEMATOCRIT 54.3 % (42.0-54.0); HEMOGLOBIN 16.8 g/dL (13.5-17.5); IMMATURE GRANULOCYTES 0.3 % (0-5); MCH 29.8 pg (26.0-34.0); MCHC 30.9 g/dL (31.0-37.0); MCV 96.3 fL (80.0-100.0); MEAN PLATELET VOLUME 9.5 fL (7.4-10.4); MONOCYTES 3.6 % (2-11); RBC 5.64 10x6/uL (4.20-6.10); RDW 15.5 % (11.5-14.5); WBC 10.1 10x3/uL (4.8-10.8)
[2020-02-19 05:51] LABS: PLATELET COUNT 142 10x3/uL (130-400)
--- NOTE | 2020-02-19 06:12 | NUR ---
TALKED TO ROSEMARY KAMARA FOR RENAL, GAVE NEW ORDER, WILL PUT THEM IN COMPUTER AND FOLLOW THEM.
[2020-02-19 08:42] VITALS: BP 123/55
[2020-02-19 09:15] LABS: ALBUMIN 3.7 g/dL (3.4-5.0); ANION GAP 22.2 mmol/L (8-16); BILIRUBIN - TOTAL 0.45 mg/dL (0.2-1.3); CALCIUM 8.9 mg/dL (8.5-10.1); CARBON DIOXIDE 23.8 mmol/L (21.0-32.0); CREATININE - SERUM 14.4 mg/dL (0.6-1.3); PHOSPHOROUS 4.5 mg/dL (2.5-4.9); PROTEIN - SERUM 8.5 g/dL (6.4-8.2); VANCOMYCIN - RANDOM 11.9 ug/mL (10.0-20.0)
[2020-02-19 15:17] VITALS: Ht 175.3 cm; Wt 86.1 kg
[2020-02-19 16:24] VITALS: BP 152/85
--- NOTE | 2020-02-19 20:12 | NUR ---
RECEIVED BEDSIDE SHIFT REPORT. ALERT AND ORIENTED X4. UP AD LUZ. IV TO LT FA SL. DSG INTACT WITH NO REDNESS OR SWELLING. HEMO SPLIT TO RT CHEST. DENIES ANY PAIN OR NEEDS AT THIS TIME.
[2020-02-19 20:26] VITALS: BP 127/67
[2020-02-20 00:49] VITALS: BP 92/65
[2020-02-20 05:18] VITALS: BP 114/76
--- NOTE | 2020-02-20 07:47 | NUR ---
PT RESTING COMFORTABLY, EYES CLOSED, BREATHS EVEN/REGULAR AND UNLABORED. CL IN REACH, SRX2, DID NOT FURTHER DISTURB FURTHER AT THISTIME.
[2020-02-20 08:15] VITALS: BP 134/73
[2020-02-20 09:04] LABS: BILIRUBIN - TOTAL 0.5 mg/dL (0.2-1.3); CALCIUM 7.5 mg/dL (8.5-10.1); POTASSIUM - SERUM 5.6 mmol/L (3.5-5.1); PROTEIN - SERUM 7.3 g/dL (6.4-8.2)
[2020-02-20 09:08] LABS: ANION GAP 25.8 mmol/L (8-16); CARBON DIOXIDE 17.8 mmol/L (21.0-32.0); CREATININE - SERUM 13.1 mg/dL (0.6-1.3)
[2020-02-20 09:09] LABS: ALBUMIN 3.8 g/dL (3.4-5.0); VANCOMYCIN - RANDOM 22.1 ug/mL (10.0-20.0)
--- NOTE | 2020-02-20 10:11 | NUR ---
PT AWAKE AND ORIENTED, ADMINISTERED MEDS WITHOUT COMPLICATIONS. PT STATES HE'S FEELING BETTER TODAY. NO COMPLAINTS OR CONCERNS AT [facility] [place]. CL INR EACH, SRX2.
--- NOTE | 2020-02-20 14:23 | NUR ---
I/V OUT TIP INTACT, WAITING ON BROTHER TO ARRIVE TO TAKE HIM HOME.
--- NOTE | 2020-02-20 17:12 | NUR ---
ESCORTED OUT VIA WHEELCAIR TO BROTHERS POV
--- NOTE | 2020-02-21 21:50 | MORECARE ---
CASE MANAGEMENT DISCHARGE SUMMARY PATIENT: VALENTE HUFF UNIT: [id number] ADM DATE: 02/18/20 AGE: 54 : 69 SEX: M ROOM/BED: D.2989 AUTHOR: LONI GRAHAM PHYSICIAN: REFERRING PHYSICIAN: DEV ALEGRIA MD DATE OF SERVICE: 02/21/20 Discharge Plan Patient Name: VALENTE HUFF Facility: [facility]:[place] : 1965 Planned Disposition: Home Anticipated Discharge Date: Discharge Date: 02/20/2020 Expected LOS: Initial Reviewer: [email or web address] Initial Review Date: 02/19/2020 Generated: 02/21/20 10:49 pm Comments DCP- Discharge Planning Updated by [email or web address]: Sneha Steve on 02/21/20 8:[address] LATE ENTRY 02/20/20 Patient Name: VALENTE HUFF Admission Status: Elective Accout number: [id number] Admission Date: 02-18-2020 : 1965 Admission Diagnosis:FEVER, UNSPECIFIED Attending: Dev Alegria Current LOS: 2 Anticipated DC Date: Planned Disposition: Home Primary Insurance: [facility] [employer] Discharge Planning Comments: CM met with patient to complete initial dc planning assessment. CM educated patient on the CM role and verbal consent given by patient to complete assessment. Patient lives at home with family. Patient is independent. At discharge patient plans to return home and feels this is a safe discharge. CM discussed availability of home health, rehab services, and medical equipment. Patient will have family to transport home. Patient denied known discharge needs at this time. CM will continue to follow and will assist as needed with dc plans/needs. Surgical Product Sales Consultant: Senha Steve DCPIA - Discharge Planning Initial Assessment Updated by [id number]: Sneha Steve on 02/21/20 9:45 pm * Is the patient Alert and Oriented? Yes * How many steps to enter\exit or inside your home? * PCP SHEN BARAKAT * [facility] * Preadmission Environment Home with Family * ADLs Independent * Equipment None * List name and contact numbers for known caregivers / representatives who currently or will assist patient after discharge: BERTRAM CORTES -[phone] [place] [facility] [phone] * Verbal permission to speak to the caregivers and representatives has been obtained from the patient. Yes * Community resources currently utilized None * Please name any agencies selected above. HD - [facility] * Additional services required to return to the preadmission environment? No * Can the patient safely return to the preadmission environment? Yes * Has this patient been hospitalized within the prior 30 days at any hospital? No Patient Name: VALENTE HUFF Page [phone] at 2150 All edits/amendments must be made on the electronic document DICTATION DATE: 02/21/202148 FIRE MARSHAL: FRANNIE 02/21/202148 RPT#: [id number] DC DATE:02/20/20 STATUS: DIS IN [facility] [address] [place] [address] END OF REPORT
== END 2020-02-20 17:12 | disposition home or self-care (01) | DRG 864 ==
LOC: D.ER 22:00 → D.M2 22:15
PROVIDERS: Family Medicine; Internal Medicine; ADMIT Internal Medicine Nephrology; ATTEND Internal Medicine Nephrology
DX: R50.9 Fever, unspecified (principal); N18.6 End stage renal disease; I12.0 Hypertensive chronic kidney disease with stage 5 chronic kidney disease or end stage renal disease; E87.5 Hyperkalemia; E11.22 Type 2 diabetes mellitus with diabetic chronic kidney disease; Z99.2 Dependence on renal dialysis

== ENCOUNTER 2020-02-24 00:03 | Inpatient (IN) | payer MEDICARE, MEDICAID ==
[~2020-02-24] VITALS: Ht 175.3 cm; Wt 88.9 kg
[2020-02-24] MEDS ORDERED: SENSIPAR30 MG PO (00:16)
[2020-02-24 00:51] VITALS: BP 131/92
--- NOTE | 2020-02-24 02:10 | NUR ---
to bed via wc pt amblitory to bed low and locked pt has few needs water gotten
[2020-02-24 04:05] VITALS: BP 168/87
--- NOTE | 2020-02-24 07:10 | NUR ---
REPORT RECEIVED FROM MANAGER CABLE AND PATIENT CARE ASSSUMED. PATIENT LAYING IN BED ON BACK AWAKE, ALERT AND ORIENTED X 4. PATIENT DENIES ANY NEEDS OR PAIN. WILL CONTINUE WITH PLAN OF CARE. SR UP X 2 BED IN LOW POSITON AND CALL LIGHT IN REACH.
[2020-02-24 08:11] VITALS: BP 162/85
--- NOTE | 2020-02-24 10:16 | NUR ---
PATIENT ACCIDENTLY PULLED OUT PIV TO RT HAND. PRESSURE DRSG APPLIED. WILL ATTEMPT NEW PIV ACCESS.
--- NOTE | 2020-02-24 10:20 | NUR ---
DR CARTER STATED IN NOTES THAT PT TO HAVE HD TODAY. NO ORDERS GIVEN. CONTACTED DR KATH SPOKE WITH JUAN MANUEL MCCORD.INFORMED THAT NEEDS HD ORDERS AND PATIENT TO HAVE SURGERY WITH DR MEJIA TODAY ABOUT 1700. FLEX VERBALIZED UNDERSTANDING.
[2020-02-24 10:24] VITALS: Ht 175.3 cm; Wt 88.9 kg
--- NOTE | 2020-02-24 19:00 | NUR ---
REPORT RECEIVED, WILL CONTINUE POC. PATIENT IS AAOX4, LYING IN SEMI-FOWLERS POSITION. NO S/S OF DISTRESS OBSERVED, RR EVEN AND UNLABORED ON ROOM AIR. PATIENT DENIES NEEDS AT THIS TIME. CL IN REACH, BED LOCKED AND LOWERED. WILL CTM.
--- NOTE | 2020-02-24 19:30 | NUR ---
PATIENT IS BLEEDING FROM SURGICAL SITE. SITE REINFORCED, SAND BAG APPLIED. INSTRUCTED PATIENT TO LIMIT USE OF HIS RT ARM TO ASSIST WITH BLEEDING.
[2020-02-24 20:48] VITALS: BP 172/60
[2020-02-24 21:00] VITALS: BP 172/60
[2020-02-25 00:48] VITALS: BP 168/91
--- NOTE | 2020-02-25 01:40 | NUR ---
PATIENT FOREPART RASPER LIGHT, BLEEDING AGAIN FROM SURGICAL SITE. REINFORCED AGAIN. INSTRUCTED PATIENT TO REMAIN STILL. PAGED RENAL FOR MEDICATION FOR AGITATION. RECEIVED CALL BACK FROM GRACE BOATENG. ORDERS RECEIVED.
--- NOTE | 2020-02-25 03:38 | NUR ---
I have reviewed this patient and I concur with the Shift Assessment completed by the Licensed Practical Nurse today this shift.
--- NOTE | 2020-02-25 03:48 | NUR ---
SMALL AMOUNT OF BLOOD COMING FROM UNDERNEATH REINFORCING TAPE. TOOK OFF SANDBAG TO APPLY ICE BAG. PATIENT FEELS LESS ANXIOUS SINCE HAVING THE ATIVAN.
[2020-02-25 05:31] LABS: BASOPHILS 0 % (0-2); EOSINOPHILS 0 % (0-7); HEMATOCRIT 37.2 % (42.0-54.0); HEMOGLOBIN 11.9 g/dL (13.5-17.5); IMMATURE GRANULOCYTES 0.5 % (0-5); LYMPHOCYTES 7.6 % (15-50); MCH 28.7 pg (26.0-34.0); MCV 89.9 fL (80.0-100.0); MEAN PLATELET VOLUME 9.6 fL (7.4-10.4); MONOCYTES 2.3 % (2-11); NEUTROPHILS 89.6 % (40-80); PLATELET COUNT 162 10x3/uL (130-400); RBC 4.14 10x6/uL (4.20-6.10); RDW 15.4 % (11.5-14.5); WBC 4.4 10x3/uL (4.8-10.8)
[2020-02-25 06:00] VITALS: BP 158/79
[2020-02-25 06:08] LABS: ALBUMIN 3.4 g/dL (3.4-5.0); BILIRUBIN - TOTAL 0.44 mg/dL (0.2-1.3); C-REACTIVE PROTEIN 10.4 mg/dL (0.0-0.9); CALCIUM 7.9 mg/dL (8.5-10.1); CARBON DIOXIDE 13.7 mmol/L (21.0-32.0); MAGNESIUM - SERUM 2.1 mg/dL (1.8-2.4); PROTEIN - SERUM 7.4 g/dL (6.4-8.2)
[2020-02-25 06:43] LABS: PHOSPHOROUS 10.5 mg/dL (2.5-4.9)
[2020-02-25 06:44] LABS: POTASSIUM - SERUM 6.7 mmol/L (3.5-5.1)
[2020-02-25 08:11] VITALS: BP 148/54
--- NOTE | 2020-02-25 08:53 | NUR ---
PT HAS OLD DRIED BLOOD ON LINENS. LINENS CHANGED.
--- NOTE | 2020-02-25 09:30 | NUR ---
PT LYING IN BED. EYES CLOSED. CHEST RISING AND FALLING. PT AROUSES TO VOICE. PT STATES PAIN MEDICATION MADE HIM SLEEPY. BED LOW. CL IN REACH.
[2020-02-25 12:13] VITALS: BP 196/85
--- NOTE | 2020-02-25 13:05 | NUR ---
I have reviewed this patient and I concur with the Shift Assessment completed by the Licensed Practical Nurse today this shift.
[2020-02-25 14:49] LABS: INR 1.13 (0.85-1.17); PROTIME 14.4 SECONDS (11.6-15.0)
[2020-02-25 14:50] LABS: APTT 35.3 SECONDS (22.8-39.4)
--- NOTE | 2020-02-25 15:37 | NUR ---
PT LAYING IN BED. EYES CLOSED. CHEST RISING AND FALLING. WILL CONTINUE TO MONITOR. BED LOW. CL IN REACH.
--- NOTE | 2020-02-25 16:00 | NUR ---
LAB CALLED AND STATES PT HAS A GRAM POSTIVE BLOOD CULTURE.
[2020-02-25 16:05] VITALS: BP 187/103
--- NOTE | 2020-02-25 16:54 | NUR ---
DR. MEJIA THIS NURSE AND DIALYSIS NURSE LALO RN IN PT'S ROOM. LALO RN CHANGED PT'S RIGHT CHEST HEMOSPLIT DRESSING. JACKIE LUCERO STATED IT LOOKS GREAT AND IS OK TO USE.
--- NOTE | 2020-02-25 17:00 | NUR ---
PT TAKEN TO DIALYSIS VAI BED.
--- NOTE | 2020-02-25 19:45 | NUR ---
PT BACK FROM DIALYSIS. VSS. PT DENIES PAIN OR NEEDS. BED IS LOW AND CALL LIGHT WITHIN REACH.
[2020-02-25 20:00] VITALS: BP 115/78
[2020-02-26] VITALS: BP 137/71
[2020-02-26 04:00] VITALS: BP 177/94
[2020-02-26 07:11] LABS: BASOPHILS 0.2 % (0-2); EOSINOPHILS 1.1 % (0-7); HEMATOCRIT 33.3 % (42.0-54.0); HEMOGLOBIN 11.1 g/dL (13.5-17.5); IMMATURE GRANULOCYTES 0.5 % (0-5); LYMPHOCYTES 11.4 % (15-50); MCH 29.4 pg (26.0-34.0); MCHC 33.3 g/dL (31.0-37.0); MCV 88.3 fL (80.0-100.0); MEAN PLATELET VOLUME 8.7 fL (7.4-10.4); MONOCYTES 10.6 % (2-11); NEUTROPHILS 76.2 % (40-80); PLATELET COUNT 191 10x3/uL (130-400); RBC 3.77 10x6/uL (4.20-6.10); RDW 15.3 % (11.5-14.5)
[2020-02-26 07:20] LABS: WBC 6.2 10x3/uL (4.8-10.8)
[2020-02-26 07:36] LABS: CALCIUM 8.2 mg/dL (8.5-10.1); CREATININE - SERUM 16.9 mg/dL (0.6-1.3)
[2020-02-26 07:44] LABS: ANION GAP 22.9 mmol/L (8-16); CARBON DIOXIDE 20.3 mmol/L (21.0-32.0); POTASSIUM - SERUM 4.2 mmol/L (3.5-5.1)
[2020-02-26 10:36] VITALS: BP 152/51
--- NOTE | 2020-02-26 13:09 | NUR ---
Nutrition Follow-up: POD 2 hemosplite exchange. Eating well but having diarrhea; noted stool studies ordered. Diet: Diabetic PO intake: 100% No new wt; last wt: 196# (02/23) Labs noted: Na 132, K+ 4.2, Glu 103, Ca 8.2 Meds noted: Sensipar, Humulin, Protonix, Phoslo -Monitor wt; noted daily wts ordered. -RD following.
--- NOTE | 2020-02-26 13:39 | NUR ---
PT TAKEN TO DIALYSIS VIA WC.
--- NOTE | 2020-02-26 14:40 | NUR ---
SPOKE WITH JEANNE EDWARDS ABOUT BUPRENEX 0.2MG BEING TOO MUCH FOR PT AND PT WAS ASLEEP ALL DAY YESTERDAY AFTER RECEIVING. SHE STATES TO CHANGE DOSE TO 0.1MG. I VERBALIZED UNDERSTANDING.
--- NOTE | 2020-02-26 15:15 | NUR ---
PT BRIOUGHT BACK FROM DIALYSIS. DIALYSIS STATES THEY WERE UNABLE TO DO HD BECAUSE PT HAD TO GO TO THE BATHROOM TWICE FOR DIARRHEA. LALO GARZACLINICAL PROJECT ASSISTANT NURSE ALSO STATED SHE LET JEANNE EDWARDS KNOW.
--- NOTE | 2020-02-26 19:30 | NUR ---
PT UP IN CHAIR, AAO X 3, RESP EVEN AND UNLABORED, NO DISTRESS NOTED, CL IN REACH, PT HAS NO C/O PAIN OR DISCOMFORT NOTED, NO CONCERNS OR WANTS AT THIS TIME.
--- NOTE | 2020-02-26 19:48 | NUR ---
I have reviewed this patient and I concur with the Shift Assessment completed by the Licensed Practical Nurse today this shift.
[2020-02-26 20:30] VITALS: BP 149/83
[2020-02-27 00:26] VITALS: BP 170/83
--- NOTE | 2020-02-27 04:04 | NUR ---
I have reviewed this patient and I concur with the Shift Assessment completed by the Licensed Practical Nurse today this shift.
[2020-02-27 04:30] VITALS: BP 186/94
[2020-02-27 05:35] LABS: BASOPHILS 0 % (0-2); EOSINOPHILS 4.1 % (0-7); HEMATOCRIT 33.7 % (42.0-54.0); IMMATURE GRANULOCYTES 1.3 % (0-5); MCH 29.3 pg (26.0-34.0); MCHC 32.6 g/dL (31.0-37.0); MCV 89.9 fL (80.0-100.0); MEAN PLATELET VOLUME 9.2 fL (7.4-10.4); MONOCYTES 16.8 % (2-11); NEUTROPHILS 62.8 % (40-80); RBC 3.75 10x6/uL (4.20-6.10); RDW 15.5 % (11.5-14.5)
[2020-02-27 05:41] LABS: PLATELET COUNT 234 10x3/uL (130-400); WBC 4.6 10x3/uL (4.8-10.8)
[2020-02-27 05:47] LABS: ANION GAP 21.6 mmol/L (8-16); CARBON DIOXIDE 18.6 mmol/L (21.0-32.0); CREATININE - SERUM 16.4 mg/dL (0.6-1.3); POTASSIUM - SERUM 4.2 mmol/L (3.5-5.1)
[2020-02-27 07:13] LABS: PH - STOOL 6.5 (7.0-7.5)
--- NOTE | 2020-02-27 07:48 | NUR ---
PT AWAKE AND ORIENTED, LYING IN BED RESITNG RESTING COMFORTABLY. NO COMPLAINTS OR CONCERNS AT HTIS TIME. SPOKE TO JEANNE PERDOMO SHE STATED TO GIVE HIM AN IMMODIUM PRE DIAYLSIS TODAY. WILL DO. CL IN REACH, SRX2.
--- NOTE | 2020-02-27 09:16 | NUR ---
SPOKE TO BROTHER, AUTHORIZED INFORMATION GETTER. GAVE PT PRN BLOOD PREASURE MEDS FOR HIGH BP
[2020-02-27 10:06] VITALS: BP 174/99
--- NOTE | 2020-02-27 12:50 | NUR ---
PT IN CATRACHITASIS
[2020-02-27 17:26] VITALS: BP 191/85
--- NOTE | 2020-02-27 19:11 | NUR ---
UP IN CHAIR WITH EYES OPEN AND TV ON. ALERT AND ORIENTED X4. LT ARM RESERVED D/T AVF. RT CHEST HEMOSPLIT WITH DSG CDI. IV TO RT AC SL. DENIES ANY NEEDS AT THIS TIME.
[2020-02-27 20:30] VITALS: BP 132/63
[2020-02-28 00:55] VITALS: BP 173/57
[2020-02-28 04:30] VITALS: BP 179/63
[2020-02-28 07:05] LABS: BASOPHILS 0.2 % (0-2); EOSINOPHILS 5.2 % (0-7); HEMATOCRIT 33.8 % (42.0-54.0); HEMOGLOBIN 10.7 g/dL (13.5-17.5); IMMATURE GRANULOCYTES 1.2 % (0-5); MCH 28.8 pg (26.0-34.0); MCHC 31.7 g/dL (31.0-37.0); MCV 91.1 fL (80.0-100.0); MEAN PLATELET VOLUME 8.7 fL (7.4-10.4); MONOCYTES 15.6 % (2-11); NEUTROPHILS 63.8 % (40-80); PLATELET COUNT 236 10x3/uL (130-400); RBC 3.71 10x6/uL (4.20-6.10); RDW 15.3 % (11.5-14.5)
[2020-02-28 07:26] LABS: ANION GAP 16.9 mmol/L (8-16); CALCIUM 7.4 mg/dL (8.5-10.1); CARBON DIOXIDE 21.9 mmol/L (21.0-32.0); CREATININE - SERUM 12.7 mg/dL (0.6-1.3); POTASSIUM - SERUM 3.8 mmol/L (3.5-5.1)
--- NOTE | 2020-02-28 09:41 | NUR ---
PT ALERT AND ORIENTED X4 UPON ENTERING, IN BEDSIDE CHAIR. ADMINISTERED MORNING MEDICATION AT THIS TIME. ASSESSMENT PERFORMED. RIGHT IV OUT DUE TO INFILTRATION, SITE IS COVERED, DRESSED PT IN A CLEAN GOWN. DENIES ANY NEEDS. WILL CONTINUE TO MONITOR.
[2020-02-28 10:01] VITALS: BP 145/46
--- NOTE | 2020-02-28 11:45 | NUR ---
I have reviewed this patient and I concur with the Shift Assessment completed by the Licensed Practical Nurse today this shift.
--- NOTE | 2020-02-28 11:59 | NUR ---
I have reviewed this patient and I concur with the Shift Assessment completed by the Licensed Practical Nurse today this shift.
--- NOTE | 2020-02-28 12:33 | NUR ---
ADMINISTERED MEDICATION, ASSESSED BLOOD SUGAR. 173, 4 UNITS INSULIN PER SLIDING SCALE. UPRIGHT IN BEDSIDE CHAIR EATING. DENIES ANY NEEDS. WILL CONTINUE TO MONITOR. ATTEMPTED TO START IV, UNABLE TO. WILL GET ANOTHER NURSE TO ATTEMPT.
[2020-02-28 14:10] VITALS: BP 173/88
--- NOTE | 2020-02-28 16:21 | NUR ---
ADMINISTERED MEDICATION, NO DIFFICULTIES. ASSESSED BLOOD SUGAR. NO INSULIN NEEDED FOR SUGAR OF 117. SITTING IN BEDSIDE CHAIR. PROVIDED PT WITH A FRESH DRINK. DENIES ANY NEEDS. WILL CONTINUE TO MONITOR.
--- NOTE | 2020-02-28 18:21 | NUR ---
3 NURSES HAVE ATTEMPTED TO START IV ON PATIENT, UNSUCCESFUL. WILL NEED TO CONSULT VASCULAR ACCESS IN THE AM.
[2020-02-28 18:22] VITALS: BP 163/83
[2020-02-28 20:30] VITALS: BP 171/81
[2020-02-29 00:17] VITALS: BP 180/80
[2020-02-29 04:30] VITALS: BP 164/68
[2020-02-29 07:33] LABS: BASOPHILS 0.2 % (0-2); EOSINOPHILS 4.6 % (0-7); HEMATOCRIT 34.1 % (42.0-54.0); IMMATURE GRANULOCYTES 1.2 % (0-5); LYMPHOCYTES 9.8 % (15-50); MCH 28.9 pg (26.0-34.0); MCHC 32.3 g/dL (31.0-37.0); MCV 89.5 fL (80.0-100.0); MEAN PLATELET VOLUME 8.4 fL (7.4-10.4); NEUTROPHILS 68.2 % (40-80); PLATELET COUNT 230 10x3/uL (130-400); RBC 3.81 10x6/uL (4.20-6.10)
--- NOTE | 2020-02-29 07:33 | NUR ---
REPORT RECIEVED. PT SITTING IN BEDSIDE CHAIR. RR EVEN AND UNLABORED ON RA. PT HAS A R CHEST HEMOSPLIT AND IS A RESERVE L ARM. BED LOCKED AND IN LOWEST POSITION, CALL LIGHT WITHIN REACH. WILL CTM
[2020-02-29 07:36] LABS: WBC 6.5 10x3/uL (4.8-10.8)
--- NOTE | 2020-02-29 07:44 | NUR ---
GRACE ARCHULETA PAGED OK TO PUT IV IN RIGHT ARM.
[2020-02-29 07:54] LABS: CALCIUM 7.3 mg/dL (8.5-10.1); CARBON DIOXIDE 19.7 mmol/L (21.0-32.0); CREATININE - SERUM 14.8 mg/dL (0.6-1.3); POTASSIUM - SERUM 3.7 mmol/L (3.5-5.1)
[2020-02-29 09:00] VITALS: BP 169/86
[2020-02-29 11:00] VITALS: BP 158/52
--- NOTE | 2020-02-29 14:13 | NUR ---
HEMODIALYSIS TREATMENT LASTED 45 MINUTES, PRIME/RINSEBACK WAS OBTAINED UF HENNESSY, BLOOD RETURNED, DR. CARTER NOTIFIED AND AN ORDER FOR ACTIVASE WAS OBTAINED. INSTILLED AND DWELLING IN BOTH LUMENS OF PATIENT'S HEMOSPLIT, WRAPPED WITH GUAZE AND TAPE AND LABELED "ACTIVASE, DO NOT PUSH."
[2020-02-29 15:00] VITALS: BP 173/50
--- NOTE | 2020-02-29 15:48 | MORECARE ---
CASE MANAGEMENT DISCHARGE SUMMARY PATIENT: VALENTE HUFF UNIT: [id number] ADM DATE: 02/24/20 AGE: 54 : [birth year] SEX: M ROOM/BED: D.2101 AUTHOR: LONI GRAHAM PHYSICIAN: REFERRING PHYSICIAN: ARMANDO CARTER DO DATE OF SERVICE: 02/29/20 Discharge Plan Patient Name: VALENTE HUFF [facility] [facility] 1965 Planned Disposition: Anticipated Discharge Date: Discharge Date: Expected LOS: Initial Reviewer: [email or web address] Initial Review Date: 02/24/2020 Generated: 02/29/20 4:47 pm Patient Name: VALENTE HUFF Page [phone] at 1548 All edits/amendments must be made on the electronic document DICTATION DATE: 02/29/20 1547 HEALTH CARE CONSULTANT: FRANNIE 02/29/20 1547 RPT#: [id number] DC DATE: STATUS: ADM IN [facility] [address] [place] [address] END OF REPORT
--- NOTE | 2020-02-29 19:00 | NUR ---
REPORT RECEIVED, WILL CONTINUE POC. PATIENT IS AAOX4, SITTING UP IN CHAIR. NO S/S OF DISTRESS OBSERVED, RR EVEN AND UNLABORED ON ROOM AIR. PATIENT DENIES NEEDS AT THIS TIME. CL IN REACH, BED LOCKED AND LOWERED. WILL CTM.
--- NOTE | 2020-02-29 19:13 | NUR ---
I have reviewed this patient and I concur with the Shift Assessment completed by the Licensed Practical Nurse today this shift.
--- NOTE | 2020-02-29 20:36 | NUR ---
PATIENT C/O OF PAIN AT IV SITE. NS @ [facility] WAS INFUSING. STOPPED FLUIDS AND PATIENT WAS RELIEVED. WENT AHEAD AND SALINE LOCKED HIM. WILL FLUSH OFTEN TO MAINTAIN PATENCY.
[2020-02-29 21:21] VITALS: BP 197/59
--- NOTE | 2020-02-29 22:47 | NUR ---
PATIENT IV SITE STILL BOTHERING HIM. FEELS SWOLLEN AND FIRM. DC'D IV WITH CATH TIP INTACT. GAUZE AND BANDAID PLACED. PATIENT IS VISUALLY UNCOMFORTABLE. WHEN ASKED IF HE'S IN PAIN OR DISCOMFORT. PATIENT STATES, HE'S NOT "IN PAIN JUST UNCOMFORTABLE AND TENSE". WILL HAVE TO PAGE RENAL TO HAVE IV ATIVAN SWITCHED TO PO.
--- NOTE | 2020-02-29 23:46 | NUR ---
RECEIVED CALL BACK FROM LACEY PABON APN. ORDERS RECEIVED TO CHANGE IV ATIVAN TO PO.
[2020-03-01 01:04] VITALS: BP 165/71
--- NOTE | 2020-03-01 01:13 | NUR ---
PATIENT ON CL, C/O PAIN 9/10 TO HIS STOMACH. WANTED TO TRY FOR ANOTHER PIV. 20G PIV TO RT HAND X2 ATTEMPTS. GOOD BLOOD RETURN, FLUSHED WITH EASE. ADMINISTERED PRN BUMEX PER ORDERS.
--- NOTE | 2020-03-01 02:32 | NUR ---
PATIENT ACCIDENTALLY PULLED OUT NEWLY INSERTED PIV TO RT HAND, CATH TIP INTACT. PATIENT STATES HE WAS WASHING HIS HANDS AND IT CAME OUT.
--- NOTE | 2020-03-01 04:40 | NUR ---
VIBRAMYCIN UNABLE IN PYXIS. SHIPPING TEAM LEADER CONTACTED AND INFORMED THAT THERE IS NONE IN HOUSE. MED UNAVAILABLE AT THIS TIME WELL PATIENT'S IV IS OUT.
[2020-03-01 05:59] LABS: ANION GAP 21.9 mmol/L (8-16); CALCIUM 7.5 mg/dL (8.5-10.1); CARBON DIOXIDE 18.8 mmol/L (21.0-32.0); CREATININE - SERUM 15.1 mg/dL (0.6-1.3); POTASSIUM - SERUM 3.7 mmol/L (3.5-5.1)
[2020-03-01] MEDS ORDERED: HYDROCORTISONE30 G8 TOPICAL (07:19)
--- NOTE | 2020-03-01 07:33 | NUR ---
REPORT RECIEVED. PT SITTING UP IN BED SIDE CHAIR. RR EVEN AND UNLABORED ON RA. PT HAS A R CHEST HEMO SPLIT AND IS A LEFT ARM RESERVE FOR AN OLD FISTULA. BED LOCKED AND IN LOWEST POSITION, CALL LIGHT WITHIN REACH. WILL CTM
[2020-03-01 09:00] VITALS: BP 152/79
--- NOTE | 2020-03-01 10:37 | MORECARE ---
CASE MANAGEMENT DISCHARGE SUMMARY PATIENT: VALENTE HUFF UNIT: [id number] ADM DATE: 02/24/20 AGE: 54 : [birth year] SEX: M ROOM/BED: D.2101 AUTHOR: LONI GRAHAM PHYSICIAN: REFERRING PHYSICIAN: ARMANDO CARTER DO DATE OF SERVICE: 03/01/20 Discharge Plan Patient Name: VALENTE HUFF [facility] : 1965 Planned Disposition: Home Health Service Anticipated Discharge Date: 03/01/20 Discharge Date: Expected LOS: 6 Initial Reviewer: [email or web address] Initial Review Date: 02/24/2020 Generated: 03/01/20 11:37 am DCPIA - Discharge Planning Initial Assessment Updated by [email or web address]: Charley Holm on 03/01/20 10:37 am * Is the patient Alert and Oriented? Yes * PCP Cherise Wu APRN * Pharmacy [facility], [place] * Preadmission Environment Home with Family * ADLs Independent * Equipment None * Other Equipment NA * List name and contact numbers for known caregivers / representatives who currently or will assist patient after discharge: Hardy Lazo (brother) [phone] * Verbal permission to speak to the caregivers and representatives has been obtained from the patient. Yes * Community resources currently utilized Home Health * Please name any agencies selected above. [facility] * Additional services required to return to the preadmission environment? Yes * Can the patient safely return to the preadmission environment? Yes * Has this patient been hospitalized within the prior 30 days at any hospital? Yes Last DP export: 02/29/20 2:47 p Patient Name: VALENTE HUFF Page [phone] at 1037 All edits/amendments must be made on the electronic document DICTATION DATE: 03/01/20 1037 CARDIAC CARE NURSE: FRANNIE 03/01/20 1037 RPT#: [id number] DC DATE: STATUS: ADM IN [facility] [address] [place] [address] END OF REPORT
--- NOTE | 2020-03-01 11:24 | NUR ---
Nutrition Follow-up: Eating well. Ate 100% of breakfast this AM. Noted possible d/c following HD today. Diet: Renal ADA No new wt; last wt: 196# (02/23) Last BM: 02/26 per chart Labs noted: Na 132 Meds noted: Sensipar, Protonix, Phoslo -Monitor wt; noted daily wts ordered. -RD following.
--- NOTE | 2020-03-01 11:32 | MORECARE ---
CASE MANAGEMENT DISCHARGE SUMMARY PATIENT: VALENTE HUFF UNIT: [id number] ADM DATE: 02/24/20 AGE: 54 : 69 SEX: M ROOM/BED: D.2101 AUTHOR: LONI GRAHAM PHYSICIAN: REFERRING PHYSICIAN: ARMANDO CARTER DO DATE OF SERVICE: 03/01/20 Discharge Plan Patient Name: VALENTE HUFF Facility: [facility]:[place] : 1965 Planned Disposition: Home Health Service Anticipated Discharge Date: 03/01/20 Discharge Date: Expected LOS: 6 Initial Reviewer: [email or web address] Initial Review Date: 02/24/2020 Generated: 03/01/20 12:32 pm Comments DCP- Discharge Planning Updated by [email or web address]: Charley Holm on 03/01/20 10:[address] DC Needs: [facility], [place] resume. [facility] transportation @1530 today, . CM met with patient regarding DC needs/plans. PCP: [facility]. Pharmacy: [facility]. DME: none. HHS: [facility] , [place] [phone], . HD: M/W/F [facility]. [facility] [employer], . Patient lives independently with his brother, Hardy Lazo (brother) [phone]. Patient denies the need for further DME, or home services. CM will follow and assist with DC plans PRN. CM contacted Tamara Nunez @[facility], arranged transportation for pickling grader @1530 today, after HD. CM spoke to patient brother Hardy to verify transportation needs and HHS. DCPIA - Discharge Planning Initial Assessment Updated by [email or web address]: Charley Holm on 03/01/20 10:37 am * Is the patient Alert and Oriented? Yes * PCP Cherise Wu APRN * Pharmacy [facility] * Preadmission Environment Home with Family * ADLs Independent * Equipment None * Other Equipment NA * List name and contact numbers for known caregivers / representatives who currently or will assist patient after discharge: Hardy Lazo (brother) [phone] * Verbal permission to speak to the caregivers and representatives has been obtained from the patient. Yes * Community resources currently utilized Home Health * Please name any agencies selected above. [facility] * Additional services required to return to the preadmission environment? Yes * Can the patient safely return to the preadmission environment? Yes * Has this patient been hospitalized within the prior 30 days at any hospital? Yes Last DP export: 03/01/20 9:37 a Patient Name: VALENTE HUFF Page [phone] at 1132 All edits/amendments must be made on the electronic document DICTATION DATE: 03/01/20 1132 BASEBALL CLUB MANAGER: FRANNIE 03/01/20 1132 RPT#: [id number] DC DATE: STATUS: ADM IN [facility] [address] [place] [address] END OF REPORT
--- NOTE | 2020-03-01 12:13 | NUR ---
I have reviewed this patient and I concur with the Shift Assessment completed by the Licensed Practical Nurse today this shift.
--- NOTE | 2020-03-01 12:35 | MORECARE ---
CASE MANAGEMENT DISCHARGE SUMMARY PATIENT: VALENTE HUFF UNIT: [id number] ADM DATE: 02/24/20 AGE: 54 : 69 SEX: M ROOM/BED: D.2101 AUTHOR: SANTOS,DOC PHYSICIAN: REFERRING PHYSICIAN: ARMANDO CARTER DO DATE OF SERVICE: 03/01/20 Discharge Plan Patient Name: VALENTE HUFF Facility: [facility]:[place] : 1965 Planned Disposition: Home Health Service Anticipated Discharge Date: 03/01/20 Discharge Date: Expected LOS: 6 Initial Reviewer: [email or web address] Initial Review Date: 02/24/2020 Generated: 03/01/20 1:34 pm Comments DCP- Discharge Planning Updated by [email or web address]: Charley Holm on 03/01/20 11:[address] DC Needs: [facility], [place], faxed required information. [facility] transportation @1530 today, . CM met with patient regarding DC needs/plans. PCP: [facility]. Pharmacy: [facility]. DME: none. HHS: [facility] [place] [phone], . HD: M/W/F [facility]. [facility] [employer], . Patient lives independently with his brother, Hardy Lazo (brother) [phone]. Patient denies the need for further DME, or home services. CM will follow and assist with DC plans PRN. CM contacted Tamara Nunez @[facility], arranged transportation for picker packer @1530 today, after HD. CM spoke to patient brother Hardy to verify transportation needs and HHS. DCPIA - Discharge Planning Initial Assessment Updated by [email or web address]: Charley Holm on 03/01/20 10:37 am * Is the patient Alert and Oriented? Yes * PCP Cherise Wu APRN * Pharmacy [facility] * Preadmission Environment Home with Family * ADLs Independent * Equipment None * Other Equipment NA * List name and contact numbers for known caregivers / representatives who currently or will assist patient after discharge: Hardy Lazo (brother) [phone] * Verbal permission to speak to the caregivers and representatives has been obtained from the patient. Yes * Community resources currently utilized Home Health * Please name any agencies selected above. [facility] * Additional services required to return to the preadmission environment? Yes * Can the patient safely return to the preadmission environment? Yes * Has this patient been hospitalized within the prior 30 days at any hospital? Yes External Providers External Provider: [facility] Next Contact Date: Service Request Date: Service Type: Resolution: Reviewer: Comments: Last DP export: 03/01/20 10:32 a Patient Name: VALENTE HUFF Page 05160 at 1235 All edits/amendments must be made on the electronic document DICTATION DATE: 03/01/20 1234 ELECTRICAL TESTER BATTERY: FRANNIE 03/01/20 1234 RPT#: [id number] DC DATE: STATUS: ADM IN [facility] [address] [place] [address] END OF REPORT
--- NOTE | 2020-03-01 15:38 | NUR ---
DC PAPERWORK GONE OVER AND SIGNED WITH PT. ALL QUESTIONS ANSWERED. PT AWAITING SCAT BUS TO PICK HIM UP AND TAKE HIM HOME. WILL CTM
--- NOTE | 2020-03-01 16:13 | OP ---
PATIENT NAME: VALENTE HUFF MEDICAL RECORD: [id number] :69 LOCATION:D. D.2101 ADMISSION DATE:02/24/20 SURGEON: PEPPER MEJIA MD DATE OF OPERATION: 02/24/2020 REFERRED BY: Rosio Carter DO PREOPERATIVE DIAGNOSES: End-stage renal disease and dependence on hemodialysis and bloodstream infection associated with tunneled central dialysis catheter with cultures growing Serratia marcescens. POSTOPERATIVE DIAGNOSES: End-stage renal disease and dependence on hemodialysis and bloodstream infection associated with tunneled central dialysis catheter with cultures growing Serratia marcescens. OPERATION PERFORMED: Tunneled dialysis catheter exchange under fluoroscopy. ANESTHESIA: General with LMA per ZINC PLATER, plus local 1% lidocaine with epinephrine. PREOPERATIVE NOTE: Mr. Huff is a 54-year-old -Luxembourger male patient from, I believe, [place] who has dialysis in [place], has been dialyzing now for a few months with a right internal jugular tunneled dialysis catheter. He has delayed surgery for long-term dialysis access fistula due to a fear of saul COVID-19. Instead, he has contracted sepsis with Serratia marcescens with positive blood culture. He has been readmitted to the hospital with recurrence of symptoms per Dr. Carter and I have been asked to exchange his catheter. On physical examination, the catheter is well, fixed in the tunnel by fibrous adhesions to the cuff. There is a minimal amount of purulent matter expressible at the catheter entry site. DESCRIPTION OF PROCEDURE: Under anesthesia in supine position, the patient was prepped and draped in sterile manner and a swab culture of the entry site was obtained for aerobic and anaerobic organisms. The area was then infiltrated with lidocaine and blunt dissection with a hemostat used to dissect the subcutaneous cuff from the surrounding tissues. When it was freed, the catheter slipped out quite easily under fluoroscopy over a 0.035 angled Roadrunner guidewire. The wire did not pass easily into the inferior vena cava and I performed the procedure with the catheter in the right atrium and at times in the right ventricle where it did cause ectopy, which was easily controlled by backing the catheter out under fluoroscopy. I chose a new 19-cm HemoSplit tunneled dialysis catheter and placed this through the same entry site and subcutaneous tunnel and a venous entry over the wire. The catheter was positioned appropriately deep in the right atrium with the venous line on the medial side. Both lumens were then accessed and aspirated, free return of blood from each was confirmed. They were then flushed with saline and lastly a heparin lock, clamped and capped. The catheter was sutured to the skin near the entry site with 2-0 Prolene and the site then dressed with a chlorhexidine Biopatch and a standard CVL adhesive plastic dressing. Fluoroscopy was used throughout and images were recorded to document the final positioning of the catheter in the right atrium and the configuration of the catheter in the neck without any kinks or other apparent complications. The patient was awakened, then taken to the recovery room. He will be returned OPERATIVE REPORT [id number] DARIAVALENTE to his room on the floor and we will continue to keep his head elevated and can use ice off and on to the operative site. He will continue on IV antibiotic treatment and additional medical support measures per Dr. Carter. TRANSINT:[id number] Voice Confirmation ID: [id number] DOCUMENT ID: [id number] cc: PEPPER Doss MD at 1613 CC: ROSIO CARTER DO [id number] DICTATION DATE: 02/24/20 180 DIESEL DINKEY ENGINEER: 02/25/20 0404 ADM IN [facility] [address] [place] [id number]
--- NOTE | 2020-03-01 16:14 | MORECARE ---
CASE MANAGEMENT DISCHARGE SUMMARY PATIENT: GHANSHYAM HUFF UNIT: [id number] ADM DATE: 02/24/20 AGE: 54 : 69 SEX: M ROOM/BED: D.2101 AUTHOR: SANTOS,DOC PHYSICIAN: REFERRING PHYSICIAN: ARMANDO CARTER DO DATE OF SERVICE: 03/01/20 Discharge Plan Patient Name: GHANSHYAM HUFF Facility: [facility]:[place] : 1965 Planned Disposition: Home Health Service Anticipated Discharge Date: 03/01/20 Discharge Date: Expected LOS: 6 Initial Reviewer: [email or web address] Initial Review Date: 02/24/2020 Generated: 03/01/20 5:13 pm Comments DCP- Discharge Planning Updated by [email or web address]: Charley Holm on 03/01/20 11:[address] DC Needs: [facility], [facility] resume, faxed required information. [facility] transportation @1530 today, . CM met with patient regarding DC needs/plans. PCP: [facility]. Pharmacy: [facility]. DME: none. HHS: [facility] [place] [phone], . HD: M[facility]W/F [facility]. [email or web address], . Patient lives independently with his brother, Hardy Lazo (brother) [phone]. Patient denies the need for further DME, or home services. CM will follow and assist with DC plans PRN. CM contacted Tamara Nunez @[facility], arranged transportation for pickler helper @1530 today, after HD. CM spoke to patient brother Hardy to verify transportation needs and HHS. DCPIA - Discharge Planning Initial Assessment Updated by [id number]: Charley Holm on 03/01/20 10:37 am * Is the patient Alert and Oriented? Yes * PCP Cherise Wu APRN * [facility]acy [facility] * Preadmission Environment Home with Family * ADLs Independent * Equipment None * Other Equipment NA * List name and contact numbers for known caregivers / representatives who currently or will assist patient after discharge: Hardy Lazo (brother) [phone] * Verbal permission to speak to the caregivers and representatives has been obtained from the patient. Yes * Community resources currently utilized Home Health * Please name any agencies selected above. [facility] * Additional services required to return to the preadmission environment? Yes * Can the patient safely return to the preadmission environment? Yes * Has this patient been hospitalized within the prior 30 days at any hospital? Yes Coverage Notice Reviewer: [id number] Lalo Holm Notice Issued Date-Time: 03/01/2020 16:01 Notice Type: IM Discharge Notice Notice Delivered To: Patient Relationship to Patient: Self Lead Janitor Name: Ghanshyam Huff Delivery Method: HAND - Hand Delivered Shanda Days: Prior Verbal Notification: Recipient Understood Notice: Yes Recipient Signature: Yes Med Rec Note Co-signed by Attending: Coverage Notice Comment: DC IMM signed/given to patient. Original to chart. Last DP export: 03/01/20 11:35 a Patient Name: GHANSHYAM HUFF Page [id number] at 1614 All edits/amendments must be made on the electronic document DICTATION DATE: 03/01/20 1613 ASSISTANT PRODUCER: FRANNIE 03/01/20 1613 RPT#: [id number] DC DATE: STATUS: ADM IN [facility] [address] [place] [address] END OF REPORT
--- NOTE | 2020-03-01 16:17 | NUR ---
PT ESCORTED DOWNSTAIRS VIA WHEELCHAIR. SCAT BUS TO TAKE PT HOME.
[2020-03-01 19:08] LABS: OVA + PARASITE EXAM Final report (())
== END 2020-03-01 16:18 | disposition home health service (06) | DRG 314 ==
LOC: D.ER 00:03 → D.M2 00:34
PROVIDERS: Family Medicine; Internal Medicine Nephrology; Surgery; ADMIT Internal Medicine; ATTEND Internal Medicine
PROC: 0J2SXYZ Change Other Device in Head and Neck Subcutaneous Tissue and Fascia, External Approach (ICD-10-PCS; principal; 2020-02-24 17:00)
DX: T80.211A Bloodstream infection due to central venous catheter, initial encounter (principal); N18.6 End stage renal disease; E11.22 Type 2 diabetes mellitus with diabetic chronic kidney disease; E11.65 Type 2 diabetes mellitus with hyperglycemia

== ENCOUNTER 2020-12-21 18:01 | Inpatient (IN) | payer MEDICARE, MEDICAID ==
[~2020-12-21] VITALS: Ht 175.3 cm; Wt 88.6 kg
[~2020-12-21 18:01] MED LIST changes: +HYDROCORTISONE30 G8 TOPICAL; +SENSIPAR30 MG PO
[2020-12-21 23:25] LABS: BASOPHILS 0.3 % (0-2); EOSINOPHILS 1.5 % (0-7); HEMOGLOBIN 11.1 g/dL (13.5-17.5); IMMATURE GRANULOCYTES 0.1 % (0-5); LYMPHOCYTE ABS# 1.39 10x3/uL (1.32-3.57); LYMPHOCYTES 14.7 % (15-50); MCH 30.4 pg (26.0-34.0); MCHC 31.7 g/dL (31.0-37.0); MCV 95.9 fL (80.0-100.0); MEAN PLATELET VOLUME 9.5 fL (7.4-10.4); MONOCYTES 6.4 % (2-11); NEUTROPHIL ABS# 7.28 10x3/uL (1.78-5.38); PLATELET COUNT 236 10x3/uL (130-400); RBC 3.65 10x6/uL (4.20-6.10); RDW 14.3 % (11.5-14.5); WBC 9.5 10x3/uL (4.8-10.8)
[2020-12-21 23:43] LABS: INR 1.28 (0.85-1.17); PROTIME 14.9 SECONDS (11.6-15.0)
[2020-12-21 23:44] LABS: APTT 41.7 SECONDS (22.8-39.4)
[2020-12-21 23:45] LABS: D-DIMER-QUANTITATIVE 1.78 ug/mLFEU (0.20-0.54)
[2020-12-21 23:53] LABS: ALBUMIN 3.5 g/dL (3.4-5.0); ALKALINE PHOSPHATASE 72 U/L (30-120); ALT (SGPT) 14 U/L (10-68); AMYLASE - SERUM 129 U/L (25-115); BILIRUBIN - TOTAL 0.48 mg/dL (0.2-1.3); CALC OSMOLALITY 277 mosm/kg (275-300); CALCIUM 8.8 mg/dL (8.5-10.1); CARBON DIOXIDE 28.8 mmol/L (21.0-32.0); CHLORIDE - SERUM 96 mmol/L (98-107); CKMB 0.7 U/L (0.0-3.6); CREATINE KINASE 57 UL (21-232); CREATININE - SERUM 8.6 mg/dL (0.6-1.3); GLUCOSE 127 mg/dL (74-106); LIPASE 61 U/L (73-393); MAGNESIUM - SERUM 1.8 mg/dL (1.8-2.4); POTASSIUM - SERUM 4.9 mmol/L (3.5-5.1); PROTEIN - SERUM 8.5 g/dL (6.4-8.2); SODIUM 135 mmol/L (136-145); UREA NITROGEN 29 mg/dL (7-18); eGFR NON AFRICAN AMERICAN 7 mL/min (90-120)
[2020-12-21 23:54] LABS: TROPONIN-I < 0.017 ng/mL (0.000-0.060)
[2020-12-22] VITALS (8 sets, daily range): BP systolic 117–177; BP diastolic 66–89; BMI 29.7
--- NOTE | 2020-12-22 03:06 | NUR ---
2129-- PT TO ROOM 2124 A&O X4 PLEASANT STATES THAT HIS HEMOSPLIT TO RIGHT CHEST WAS INSERTED LAST WEEK @ [facility] IN [employer] [place] AND THEY JUST SHOVED IT IN THERE AREA IS SWOLLEN & TENDER TO TOUCH. LARGE KNOT UNDER THE SKIN NOTED. SENT HERE FOR [facility] R/T INFECTED HD PORT. UP AD LUZ STEADY GAIT 22 GUAGE HEPLOCK TO LEFT WRIST. BILAT UPPER EXTREMITIES WITH NON WORKING GRAFT/FISTULA. STATES THAT HE DOESN'T MAKE URINE. HAS DIALYSIS ON ,W,F
--- NOTE | 2020-12-22 03:21 | NUR ---
2229-- SPOKE WITH ROSEMARY FROM NEPHROLOGY, NEW ORDER FOR ZOSYN 2.25MG Q8HR CAN USE EITHER ARM FOR IV PLACEMENT IF NEEDED.
[2020-12-22] MEDS ORDERED: RESTORIL15 MG PO (05:50)
[2020-12-22] MEDS ORDERED: MIDODRINE HCL10 MG PO (05:51)
[2020-12-22 06:35] LABS: BASOPHILS 0.2 % (0-2); EOSINOPHILS 1.7 % (0-7); HEMATOCRIT 34.6 % (42.0-54.0); HEMOGLOBIN 10.8 g/dL (13.5-17.5); IMMATURE GRANULOCYTES 0.1 % (0-5); LYMPHOCYTE ABS# 1.52 10x3/uL (1.32-3.57); LYMPHOCYTES 18.5 % (15-50); MCH 30.2 pg (26.0-34.0); MCHC 31.2 g/dL (31.0-37.0); MCV 96.6 fL (80.0-100.0); MEAN PLATELET VOLUME 9.7 fL (7.4-10.4); MONOCYTES 10.5 % (2-11); NEUTROPHIL ABS# 5.67 10x3/uL (1.78-5.38); PLATELET COUNT 250 10x3/uL (130-400); RBC 3.58 10x6/uL (4.20-6.10); RDW 14.3 % (11.5-14.5); WBC 8.2 10x3/uL (4.8-10.8)
[2020-12-22 06:38] LABS: ALBUMIN 3.4 g/dL (3.4-5.0); ANION GAP 16.5 mmol/L (8-16); BILIRUBIN - TOTAL 0.45 mg/dL (0.2-1.3); CALCIUM 9.1 mg/dL (8.5-10.1); CARBON DIOXIDE 27.5 mmol/L (21.0-32.0); CREATININE - SERUM 9.4 mg/dL (0.6-1.3); PROTEIN - SERUM 8.5 g/dL (6.4-8.2); VANCOMYCIN - RANDOM 16.4 ug/mL (10.0-20.0)
--- NOTE | 2020-12-22 07:13 | NUR ---
RECEIVE SHIFT REPORT. SITTING IN CHAIR. DENIES ANY PAIN AND ANY NEEDS AT THIS TIME. WILL CONTINUE POC AND SAFETY PRECAUTIONS.
[2020-12-22 12:06] LABS: CREATINE KINASE 59 UL (21-232); TROPONIN-I < 0.017 ng/mL (0.000-0.060)
[2020-12-23 03:35] VITALS: BP 183/63
--- NOTE | 2020-12-23 06:17 | NUR ---
PT AAOX4, SITTING IN RECLINER WATCHING TV. PT BS TREATED WITH ORDERED SLIDING SCALE INSULIN. BOTH IV'S FLUSHED AND WORKING. PT DENIES PAIN BUT HAS DISCOMFORT IN RIGHT INDEX FINGER AFTER GETTING IT PINCHED BETWEEN THE BED AND RECLINER. SMALL CUT WAS CLEANED AND WRAPPED IN GAUZE. TYLENOL GIVEN FOR DISCOMFORT. PT DENIES ANY FURTHER NEEDS AT THIS TIME. RN NOTICED UA NOT COLLECTED, PT STATES HE IS ANURIC BUT WILL SOMETIMES PRODUCE URINE WHEN HAVING A BOWEL MOVEMENT. PT INSTRUCTED TO CATCH IT IN A CUP IF HE CAN. CUP PLACED IN BATHROOM.
[2020-12-23 06:32] LABS: BASOPHILS 0.3 % (0-2); EOSINOPHILS 5.9 % (0-7); HEMATOCRIT 33.5 % (42.0-54.0); HEMOGLOBIN 10.5 g/dL (13.5-17.5); IMMATURE GRANULOCYTES 0.1 % (0-5); LYMPHOCYTES 10.9 % (15-50); MCH 29.7 pg (26.0-34.0); MCHC 31.3 g/dL (31.0-37.0); MCV 94.9 fL (80.0-100.0); MEAN PLATELET VOLUME 9.1 fL (7.4-10.4); MONOCYTES 21.7 % (2-11); NEUTROPHIL ABS# 4.47 10x3/uL (1.78-5.38); NEUTROPHILS 61.1 % (40-80); PLATELET COUNT 266 10x3/uL (130-400); RBC 3.53 10x6/uL (4.20-6.10); WBC 7.3 10x3/uL (4.8-10.8)
[2020-12-23 07:04] LABS: ALBUMIN 3.1 g/dL (3.4-5.0); ANION GAP 20.8 mmol/L (8-16); BILIRUBIN - TOTAL 0.41 mg/dL (0.2-1.3); CALCIUM 8.7 mg/dL (8.5-10.1); CARBON DIOXIDE 23.7 mmol/L (21.0-32.0); MAGNESIUM - SERUM 2.1 mg/dL (1.8-2.4); POTASSIUM - SERUM 5.5 mmol/L (3.5-5.1); VANCOMYCIN - RANDOM 26.1 ug/mL (10.0-20.0)
--- NOTE | 2020-12-23 07:13 | NUR ---
RECEIVE SHIFT REPORT. SITTING UP IN CHAIR. DENIES ANY NEEDS AT THIS TIME. WILL CONTINUE POC AND SAFETY PRECAUTIONS.
[2020-12-23 09:10] VITALS: BP 156/86
[2020-12-23 12:13] VITALS: Ht 175.3 cm; Wt 88.6 kg
--- NOTE | 2020-12-23 12:58 | NUR ---
OFF FLOOR FOR DIALYSIS
--- NOTE | 2020-12-23 14:21 | NUR ---
D/C LEFT FOREARM IV, TIP INTACT. DISCHARGE INSTRUCTIONS GIVEN VERBALLY AND HANDOUTS PROVIDED. TAKEN DOWN TO ED ENTRANCE VIA WHEELCHAIR. REMAINS FREE FROM INJURY.
[2020-12-23 21:01] VITALS: BP 136/71
--- NOTE | 2020-12-24 02:47 | NUR ---
ASSESSED AT THE BEGINNING OF THE SHIFT. PT IS ALERT AND ORIENTED, ABLE TO VERBALIZE NEEDS. HE HAS BEEN UP IN HIS CHAIR MOST OF THE TIME WATCHING TV. VERY POLITE AND COOPERATIVE. HIS BLOOD SUGAR WAS COVERED WITH S/S INSULIN FOR A 264, ALL MEDS WERE TAKEN ORDERED AND HE HAS NOT REQUESTED ANYTHING ELSE DURING THIS SHIFT. HE DID GET HIS SNACK FOR BEDTIME.
[2020-12-24 03:42] VITALS: BP 137/75
[2020-12-24 06:19] LABS: BASOPHILS 0.5 % (0-2); EOSINOPHILS 6.7 % (0-7); HEMATOCRIT 34.9 % (42.0-54.0); IMMATURE GRANULOCYTES 0.5 % (0-5); LYMPHOCYTE ABS# 0.91 10x3/uL (1.32-3.57); LYMPHOCYTES 14.6 % (15-50); MCH 30.1 pg (26.0-34.0); MCHC 31.5 g/dL (31.0-37.0); MCV 95.6 fL (80.0-100.0); MEAN PLATELET VOLUME 9.4 fL (7.4-10.4); MONOCYTES 18.4 % (2-11); NEUTROPHIL ABS# 3.71 10x3/uL (1.78-5.38); NEUTROPHILS 59.3 % (40-80); PLATELET COUNT 292 10x3/uL (130-400); RBC 3.65 10x6/uL (4.20-6.10); WBC 6.3 10x3/uL (4.8-10.8)
[2020-12-24 07:06] LABS: ALBUMIN 3.3 g/dL (3.4-5.0); BILIRUBIN - TOTAL 0.34 mg/dL (0.2-1.3); CALCIUM 9.7 mg/dL (8.5-10.1); CREATININE - SERUM 9.5 mg/dL (0.6-1.3); MAGNESIUM - SERUM 2.3 mg/dL (1.8-2.4); PROTEIN - SERUM 8.6 g/dL (6.4-8.2)
[2020-12-24 07:10] LABS: ANION GAP 17.6 mmol/L (8-16); POTASSIUM - SERUM 4.6 mmol/L (3.5-5.1)
--- NOTE | 2020-12-24 07:20 | NUR ---
Lying in bed, awake/alert/oriented, T/R self ad aurelia, cont of B/B with BRPs with assist ad aurelia, denies pain/other discomfort at this time, call light/phone/water within reach, no s/s of acute distress observed.
[2020-12-24 07:49] VITALS: BP 143/75
--- NOTE | 2020-12-24 12:30 | NUR ---
Back to room via w/c accompanied by hospital staff in stable condition, call light/phone/water within reach, no s/s of acute distress observed.
[2020-12-24 15:46] VITALS: BP 119/74
--- NOTE | 2020-12-24 17:20 | NUR ---
Pt up OOB holding onto furniture ambulating toward chair at bedside, assisted her the rest of the way to chair, she is very confused about why she is here, explained to her how she came to be in this room, answered questions about where her son and [id number] went and when they will be back, reoriented her to use of call light before getting up, she states she understands.
--- NOTE | 2020-12-24 17:40 | NUR ---
Called to pt room, she states she is still confused, answered her questions about where her son and [id number] went and when/who will be back to stay the night with her, again reoriented her to use of call light and reminded to call before getting up, she states she understands.
--- NOTE | 2020-12-24 19:52 | NUR ---
INITAIL ROUNDS COMPLETED AT 1915 HRWS. PT DENIED ANY DISCOMFORT. ASSESSMENT COMPLETED AT 1940 HRS. SR PER CM HR 99. IV TO L WRIST AND LFA SL. LUNGS DIMINISHED IN BASES BILAT. R ARM FISTULA WITH FAINT BRUIT. R CHEST HEMOSPLIT CLEAN,DRY AND INTACT. CALL LIGHT WITHIN REACH.
[2020-12-24 20:30] VITALS: BP 128/72
--- NOTE | 2020-12-24 21:05 | NUR ---
PM MEDS GIVEN. FSBS 161. 2 UNITS HUMALOG GIVEN SUB-Q TO UPPER L ARM PT CURRENTLY SITTING IN THE RECLINER. IV TO INNER R WRIST OUT WITH CATHETER INTACT. BAND-AID PLACED. CALL LIGHT WITHIN REACH.
--- NOTE | 2020-12-24 22:28 | NUR ---
WATCHING TV. NO DISTRESS NOTED. CALL LIGHT WITHIN REACH.
--- NOTE | 2020-12-25 00:11 | NUR ---
PT AWAKE; DENIES ANY DISCOMFORT. CALL LIGHT WITHIN REACH.
[2020-12-25 00:30] VITALS: BP 133/74
--- NOTE | 2020-12-25 04:16 | NUR ---
PT RESTING WITH EYES CLOSED. RESP EVEN AND REGULAR. CALL LIGHT WITHIN REACH.
[2020-12-25 04:30] VITALS: BP 145/73
[2020-12-25 05:56] LABS: BASOPHILS 0.7 % (0-2); EOSINOPHILS 5.7 % (0-7); HEMATOCRIT 36.2 % (42.0-54.0); HEMOGLOBIN 11.4 g/dL (13.5-17.5); IMMATURE GRANULOCYTES 0.3 % (0-5); LYMPHOCYTE ABS# 1.26 10x3/uL (1.32-3.57); LYMPHOCYTES 17.4 % (15-50); MCH 30.1 pg (26.0-34.0); MCHC 31.5 g/dL (31.0-37.0); MCV 95.5 fL (80.0-100.0); MEAN PLATELET VOLUME 9.4 fL (7.4-10.4); MONOCYTES 10.8 % (2-11); NEUTROPHIL ABS# 4.73 10x3/uL (1.78-5.38); NEUTROPHILS 65.1 % (40-80); PLATELET COUNT 320 10x3/uL (130-400); RBC 3.79 10x6/uL (4.20-6.10); RDW 13.8 % (11.5-14.5); WBC 7.3 10x3/uL (4.8-10.8)
[2020-12-25 06:05] LABS: ALBUMIN 3.5 g/dL (3.4-5.0); BILIRUBIN - TOTAL 0.33 mg/dL (0.2-1.3); CALCIUM 10.2 mg/dL (8.5-10.1); CARBON DIOXIDE 25.2 mmol/L (21.0-32.0); CREATININE - SERUM 9.4 mg/dL (0.6-1.3); MAGNESIUM - SERUM 2.2 mg/dL (1.8-2.4); POTASSIUM - SERUM 4.2 mmol/L (3.5-5.1); VANCOMYCIN - RANDOM 18.4 ug/mL (10.0-20.0)
--- NOTE | 2020-12-25 06:24 | NUR ---
VSS THROUGHOUT NIGHT. PT DENIED ANY DISCOMFORT. NEEDS MET; WILL CONTINUE TO MONITOR.
[2020-12-25 12:02] VITALS: BP 139/78
[2020-12-25 12:43] LABS: BILIRUBIN NEGATIVE (NEGATIVE); KETONE NEGATIVE (NEGATIVE); NITRITE NEGATIVE (NEGATIVE); UROBILINOGEN NORMAL mg/dL (< 2)
[2020-12-25 12:44] LABS: BACTERIA MODERATE HPF (NONE SEEN); WHITE CELLS - URINE 0-5 HPF (0-1)
[2020-12-25 16:05] VITALS: BP 147/86
--- NOTE | 2020-12-25 19:21 | NUR ---
INITIAL ROUNDS COMPLETED AT 1915 HRS. PT UP IN RECLINER. NO DISTRESS NOTED. IVAB COMPLETED AND IV TO [facility] SL'D. CALL LIGHT WITHIN REACH.
[2020-12-25 20:00] VITALS: BP 163/85
--- NOTE | 2020-12-25 22:41 | NUR ---
ASSESSMENT COMPLETED AT 2000 HRS. VSS. SR KS CM HR 91. ALERT AND ORIENTED TO PERSON, PLACE AND TIME. NEAL. PALPABLE PERIPHERAL PULSES. IV TO LFA SL. R CHEST HEMOSPLIT NOTED. L THUMB PARTIALLY AMPUTATED. LUNGS ESSENTIALLY CTA. ABD SOFT WITH ACTIVE BS NOTED. PM FSBS 185. 2 UNITS HUMALOG GIVEN SUB-Q TO UPPER R ARM. PM MEDS GIVEN. PT CURRENTLY WATCHING TV IN THE RECLINER. CALL LIGHT WITHIN REACH.
--- NOTE | 2020-12-25 23:38 | NUR ---
VSS. PT SITTING IN RECLINER. DENIES AN DISCOMFORT. CALL LIGHT WITHIN REACH.
[2020-12-26] VITALS: BP 140/84
--- NOTE | 2020-12-26 02:02 | NUR ---
PT RESTING WITH EYES CLOSED IN THE RECLINER. RESP EVEN AND REGULAR. CALL LIGHT WITHIN REACH.
[2020-12-26 04:00] VITALS: BP 134/78
--- NOTE | 2020-12-26 04:07 | NUR ---
AWAKE; DENIES ANY DISCOMFORT. CALL LIGHT WITHIN REACH.
[2020-12-26 06:27] LABS: BASOPHILS 0.3 % (0-2); HEMATOCRIT 34.8 % (42.0-54.0); HEMOGLOBIN 11.2 g/dL (13.5-17.5); IMMATURE GRANULOCYTES 0.4 % (0-5); LYMPHOCYTE ABS# 1.21 10x3/uL (1.32-3.57); LYMPHOCYTES 17.5 % (15-50); MCH 30.1 pg (26.0-34.0); MCHC 32.2 g/dL (31.0-37.0); MEAN PLATELET VOLUME 9.1 fL (7.4-10.4); MONOCYTES 13.2 % (2-11); NEUTROPHIL ABS# 4.19 10x3/uL (1.78-5.38); NEUTROPHILS 60.6 % (40-80); PLATELET COUNT 322 10x3/uL (130-400); RBC 3.72 10x6/uL (4.20-6.10); RDW 13.7 % (11.5-14.5); WBC 6.9 10x3/uL (4.8-10.8)
[2020-12-26 06:38] LABS: MCV 93.5 fL (80.0-100.0)
--- NOTE | 2020-12-26 06:42 | NUR ---
HIBICLENS BATH DONE. AM EKG COMPLETED. PT DID NOT SLEEP WELL DURING SHIFT. SLEEPY THIS AM. WILL CONTINUE TO MONITOR.
[2020-12-26 06:48] LABS: ALBUMIN 3.6 g/dL (3.4-5.0); ANION GAP 24.4 mmol/L (8-16); BILIRUBIN - TOTAL 0.35 mg/dL (0.2-1.3); CALCIUM 9.9 mg/dL (8.5-10.1); CARBON DIOXIDE 21.1 mmol/L (21.0-32.0); CREATININE - SERUM 12.5 mg/dL (0.6-1.3); MAGNESIUM - SERUM 2.2 mg/dL (1.8-2.4); POTASSIUM - SERUM 4.5 mmol/L (3.5-5.1); PROTEIN - SERUM 8.2 g/dL (6.4-8.2); VANCOMYCIN - RANDOM 14.9 ug/mL (10.0-20.0)
--- NOTE | 2020-12-26 08:30 | NUR ---
CHRIS SITTING IN BEDSIDE CHAIR AAOX4, MEDICATIONS ADMINISTERED WITH A SIP OF WATER DUE TO PROCEDURE THIS MORNING, NO FURTHER NEEDS AT THIS TIME, PAWAN LIM
[2020-12-26 08:44] VITALS: BP 128/72
--- NOTE | 2020-12-26 12:25 | NUR ---
ASSUMED CARE OF PT. GONE TO SURGERY AT PRESENT. SHOULD DIALYZE AFTERWARD.
--- NOTE | 2020-12-26 14:04 | NUR ---
PT BACK TO ROOM FROM PACU. RIGHT HEMOSPLIT IN PLACE, DRESSING IS CDI. PT IS RESTING QUIETLY AT PRESENT.
--- NOTE | 2020-12-26 14:11 | NUR ---
Nutrition Reassessment/Follow-up: NPO for hemosplit exchange. Has been eating well otherwise; 100% x 3 yesterday. HD MWF. Wt: 195# (12/26) Adj BW: 168.8# Labs noted: Na 134, K+ 4.5, Glu 92, Ca 9.9, Alb 3.6 Meds noted: Humulin, Humalog, Protonix, PhosLo, Florajen Est needs: 9086-8878 kcal/day (30-35 kcal/kg adj BW) 90-100 g protein/day (1.2-1.3 g/kg adj BW) Fluid: 1000 mL + UOP -RD will follow up within 7 days if pt still admitted.
--- NOTE | 2020-12-26 19:04 | NUR ---
PT IN DIALYSIS, BOTH NIGHT CNAs, SANAZ AND LAN WERE ASKED TO BRING PT BACK TO HIS ROOM.
--- NOTE | 2020-12-26 19:23 | NUR ---
LAN RETURNED PT TO ROOM FROM DIALYSIS.
[2020-12-26 20:00] VITALS: BP 129/72
[2020-12-27 00:01] VITALS: BP 117/64
--- NOTE | 2020-12-27 01:29 | NUR ---
I have reviewed this patient and I concur with the Shift Assessment completed by the Licensed Practical Nurse today this shift. I have reviewed this patient and I concur with the Shift Assessment completed by the Licensed Practical Nurse today this shift.
--- NOTE | 2020-12-27 03:12 | NUR ---
RESTING WITH EYES CLOSED, NO S/S DISTRESS NOTED.
[2020-12-27 04:30] VITALS: BP 118/62
[2020-12-27 06:28] LABS: BASOPHILS 0.3 % (0-2); EOSINOPHILS 8.9 % (0-7); HEMATOCRIT 33.2 % (42.0-54.0); HEMOGLOBIN 10.6 g/dL (13.5-17.5); IMMATURE GRANULOCYTES 0.6 % (0-5); LYMPHOCYTE ABS# 1.06 10x3/uL (1.32-3.57); LYMPHOCYTES 16.3 % (15-50); MCHC 31.9 g/dL (31.0-37.0); MCV 94.1 fL (80.0-100.0); MEAN PLATELET VOLUME 8.9 fL (7.4-10.4); MONOCYTES 12.3 % (2-11); NEUTROPHIL ABS# 4.01 10x3/uL (1.78-5.38); NEUTROPHILS 61.6 % (40-80); PLATELET COUNT 303 10x3/uL (130-400); RBC 3.53 10x6/uL (4.20-6.10); WBC 6.5 10x3/uL (4.8-10.8)
[2020-12-27 06:36] LABS: CALCIUM 9.4 mg/dL (8.5-10.1); CARBON DIOXIDE 24.4 mmol/L (21.0-32.0); CREATININE - SERUM 10.7 mg/dL (0.6-1.3); PHOSPHOROUS 7.7 mg/dL (2.5-4.9); POTASSIUM - SERUM 4.4 mmol/L (3.5-5.1); VANCOMYCIN - RANDOM 12.3 ug/mL (10.0-20.0)
--- NOTE | 2020-12-27 07:13 | NUR ---
RECEIVE SHIFT REPORT. SITTING UP IN CHAIR. DENIES ANY NEEDS AT THIS TIME. CONTINUE POC AND SAFETY PRECAUTIONS. CALL LIGHT IN REACH.
[2020-12-27] MEDS ORDERED: ULTRAM50 MG PO (07:36)
[2020-12-27 08:10] VITALS: BP 139/73
--- NOTE | 2020-12-27 11:49 | NUR ---
HEMOSPLIT DRESSING CHANGED. LEFT FOREARM IV OUT, TIP INTACT. DISHCARGE INSTRUCTIONS GIVEN VERBALLY AND HANDOUT PROVIDED. PRESCRIPTION GIVEN TO PATIENT FOR TRAMADOL. TAKEN DOWN TO MAIN ENTRANCE VIA WHEELCHAIR. REMAINS FREE FROM INJURY.
--- NOTE | 2020-12-31 15:24 | CN ---
PATIENT NAME:VALENTE HUFF MEDICAL RECORD: [id number] : 69 LOCATION:[facility].2125 ADMIT DATE: 12/21/20 ACCOUNT: [id number] CONSULTING PHYSICIAN: IGNACIO HOLDER MD REFERRING PHYSICIAN: VINCENT CONRAD MD DATE OF CONSULTATION: 12/22/2020 HISTORY OF PRESENT ILLNESS: The patient is a 55-year-old -Iranian male with history of end-stage renal disease, on hemodialysis, hypertension, diabetes mellitus, peripheral arterial disease, who was admitted with infection of a dialysis catheter/port. The patient denies chest pain, PND, orthopnea symptoms. The patient states he is followed by local certified recreational therapist in the [facility] with recent visit. I asked to evaluate from a cardiovascular standpoint. PAST MEDICAL HISTORY: Significant for; 1. End-stage renal disease - on hemodialysis. 2. Hypertension. 3. Diabetes mellitus. 4. Peripheral arterial disease. 5. History of chest pain -- currently asymptomatic. 6. Dialysis port/catheter infection. MEDICATIONS: Zocor 40 mg daily, Zosyn 2.25 mg IV q.8 hours, Protonix 40 mg daily, insulin regimen. PHYSICAL EXAMINATION: GENERAL: Pleasant black male, sitting, in no apparent distress. VITAL SIGNS: Blood pressure 150s over 80s, pulse 90s (regular). HEENT: Sclerae are muddy; conjunctivae pink. NECK: Supple; no appreciated JVD. HEART: Regular rhythm and rate. II/ systolic murmur. CHEST: Right upper chest wall catheter/port visualized. LUNGS: Clear bilaterally. ABDOMEN: Obese. Bowel sounds positive. EXTREMITIES: Negative for edema. NEUROLOGIC: Nonfocal. LABORATORY DATA: Troponin 0.017 (negative). White blood cell count is 8.2, hemoglobin and hematocrit 10.8 and 34.6, and platelet count is 250. Sodium is 136, potassium 5.0, BUN 32, creatinine is 9.4. DIAGNOSTIC DATA: No EKG available for review. ASSESSMENT: 1. History of chest pain -- currently asymptomatic. 2. End-stage renal disease, on hemodialysis. 3. Hypertension. 4. Diabetes mellitus. 5. Peripheral arterial disease. PLAN: 1. Continue current medical management at this time. The patient may be scheduled for echocardiogram to assess left ventricular function and valvular status. Further recommendation as clinically indicated. CONSULT REPORT [id number] VALENTE HUFF Thank you for allowing me to participate in care of this patient. TRANSINT:[id number] Voice Confirmation ID: [id number] DOCUMENT ID: [id number] IGNACIO HOLDER MD at 1524 CC: [id number] DICTATION DATE: 12/22/20 1509 CLINICAL FELLOW: 12/22/20 190 DIS IN 12/27/20 [place] [id number] [place] [id number]
== END 2020-12-27 11:50 | disposition home or self-care (01) | DRG 314 ==
LOC: D.M2 18:01
PROVIDERS: Internal Medicine Nephrology; Surgery; ADMIT Family Medicine; ATTEND Family Medicine
PROC: 5A1D70Z Performance of Urinary Filtration, Intermittent, Less than 6 Hours Per Day (ICD-10-PCS; 2020-12-22)
PROC: B5131ZA Fluoroscopy of Right Jugular Veins using Low Osmolar Contrast, Guidance (ICD-10-PCS; 2020-12-26)
PROC: 05PYX3Z Removal of Infusion Device from Upper Vein, External Approach (ICD-10-PCS; 2020-12-26)
PROC: 05HM33Z Insertion of Infusion Device into Right Internal Jugular Vein, Percutaneous Approach (ICD-10-PCS; principal; 2020-12-26 10:00)
DX: T82.7XXA Infection and inflammatory reaction due to other cardiac and vascular devices, implants and grafts, initial encounter (principal); N18.6 End stage renal disease; I12.0 Hypertensive chronic kidney disease with stage 5 chronic kidney disease or end stage renal disease; N25.81 Secondary hyperparathyroidism of renal origin; Y83.9 Surgical procedure, unspecified as the cause of abnormal reaction of the patient, or of later complication, without mention of misadventure at the time of the procedure; T80.211A Bloodstream infection due to central venous catheter, initial encounter; E11.22 Type 2 diabetes mellitus with diabetic chronic kidney disease; Z99.2 Dependence on renal dialysis; K21.9 Gastro-esophageal reflux disease without esophagitis; D63.1 Anemia in chronic kidney disease; E11.51 Type 2 diabetes mellitus with diabetic peripheral angiopathy without gangrene; H40.9 Unspecified glaucoma; H26.9 Unspecified cataract